=== PATIENT | male | born 1950 | race Caucasian/White ===

== ENCOUNTER 2017-05-05 13:10 | Inpatient (IN) | payer OTHER ==
[2017-05-05] MEDS ORDERED: ASPIRIN 81 MG CHEWABLE TABLETS PO ONE ×2 (13:59→15:36)
--- NOTE | 2017-05-05 14:08 | PDOC ---
History of Present Illness - General Chief Complaint: Shortness of Breath Stated Complaint: CARDIAC COMPLICATIONS (PCP SENT) Time Seen by Provider: 05/05/17 13:36 History Source: Patient, Family Exam Limitations: No Limitations - History of Present Illness Initial Comments: This is a 66 YOM with h/o CHF on 40 mg Lasix bid, A-Fib on digoxin and warfarin , CAD on ASA, CVA, HTN, and HLD who was instructed by his field merchandiser to come into the ED for worsening SOB, bilateral leg swelling (tight and with skin tears and weeping), worsening wet cough, and A-fib with RVR. The patient states that for the past 6 months he has had slowly worsening leg swelling and SOB. He had an onset of cough 1-2 weeks ago which has been productive of clear and yellow sputum and is generally worsening. He also has been sleeping with his back more elevated than normal, needing to transfer constantly between his bed and a recliner chair, and generally has been sleeping poorly d/t his SOB. He otherwise denies any fever, chills, chest pain, palpitations, neck pain, headache, arm pain, back pain, abdominal pain, nausea, vomiting, diarrhea, or constipation. Past History - Past Medical History Allergies/Adverse Reactions: Allergies Allergy/AdvReac Type Severity Reaction Status Date / Time No Known Allergies Allergy Verified 05/05/17 13:35 Home Medications: Ambulatory Orders Aspirin Coated [Ecotrin -] 81 mg PO DAILY #30 tablet.ec 01/12/16 Atorvastatin Ca [Lipitor] 20 mg PO HS #30 tablet 01/12/16 Acetaminophen [Tylenol .Regular Strength -] 650 mg PO Q6H PRN #0 tablet Metoprolol Succinate [Toprol XL -] 100 mg PO BID tab.sr.24h 01/31/16 Digoxin [Lanoxin -] 0.25 mg PO DAILY 05/05/17 Famotidine 20 mg PO DAILY 05/05/17 Furosemide [Lasix -] 40 mg PO DAILY 05/05/17 Levetiracetam [Keppra -] 500 mg PO DAILY 05/05/17 Losartan Potassium 50 mg PO DAILY 05/05/17 Potassium Chloride 20 meq PO DAILY 05/05/17 Warfarin Na [Coumadin] 5 mg PO DAILY 05/05/17 Anemia: No Asthma: No Cancer: No Cardiac Disorders: No CVA: Yes COPD: No CHF: No Dementia: No Diabetes: No GI Disorders: No Disorders: No HTN: Yes Hypercholesterolemia: Yes Liver Disease: No Seizures: Yes Thyroid Disease: No - Surgical History Abdominal Surgery: No Appendectomy: No Cardiac Surgery: No Cholecystectomy: No Lung Surgery: No Neurologic Surgery: No Orthopedic Surgery: No - Immunization History Immunization Up to Date: Yes - Suicide/Smoking/Psychosocial Hx Smoking Status: No Smoking History: Never smoked Have you smoked in the past 12 months: No Number of Cigarettes Smoked Daily: 0 Information on smoking cessation initiated: No Hx Alcohol Use: No Drug/Substance Use Hx: No Substance Use Type: None Hx Substance Use Treatment: No Review of Systems - Review of Systems Able to Perform ROS?: Yes Constitutional: No: Chills, Fever, Unexplained wgt Loss HEENTM: No: Nose Congestion, Throat Pain Respiratory: Yes: Cough, Shortness of Breath, SOB with Exertion, Productive cough Cardiac (ROS): Yes: Edema. No: Chest Pain, Lightheadedness, Palpitations ABD/GI: No: Constipated, Diarrhea, Nausea, Vomiting : No: Burning, Dysuria Musculoskeletal: No: Back Pain, Neck Pain Integumentary: No: Bruising, Rash Neurological: No: Headache, Numbness, Tingling, Weakness, Dizziness Endocrine: No: Unexplained Weight Gain, Unexplained Weight Loss *Physical Exam - Vital Signs Last Vital Signs Temp Pulse Resp BP Pulse Ox 98 F 87 22 148/92 91 L 05/05/17 13:30 05/05/17 13:30 05/05/17 13:30 05/05/17 13:30 05/05/17 13:30 - Physical Exam General Appearance: Yes: Nourished, Appropriately Dressed, Other (initially no distress sitting fully clothed in exam room chair, answers questions appropriately, accompanied by daughter who is supportive and provides affitional medical history, patient becomes dyspneic quickly when transferring to hospital bed from chair and again when ) HEENT: positive: EOMI, RAYNA, Normal ENT Inspection, Normal Voice, Hearing Grossly Normal. negative: Scleral Icterus (R), Scleral Icterus (L), Nasal Congestion Neck: positive: Trachea midline, Supple. negative: Tender, Rigid Respiratory/Chest: positive: Lungs Clear, Normal Breath Sounds. negative: Respiratory Distress, Crackles, Rhonchi, Stridor, Wheezing Cardiovascular: positive: Edema (3+ pitting edema BLE with overlying skin taught , 3x1 cm superficial skin tears x2 to LLE which are weeping serous fluid), JVD, Gallop/S3, Gallop/S4, Irregularly Irregular, Other (mildly tachycardic). negative: Murmur Gastrointestinal/Abdominal: positive: Normal Bowel Sounds, Soft, Protuberent. negative: Tender, Organomegaly, Pulsatile Mass, Guarding Musculoskeletal: positive: Normal Inspection. negative: Decreased Range of Motion, Vertebral Tenderness Extremity: positive: Normal Capillary Refill, Normal Inspection, Normal Range of Motion. negative: Tender, Cyanosis Integumentary: positive: Normal Color, Dry, Warm. negative: Erythema, Rash, Bruising Neurologic: positive: icu registered nurse II-XII NML intact (grossly), Fully Oriented, Alert, Normal Mood/Affect, Normal Response, Motor Strength / ED Treatment Course - LABORATORY CBC & Chemistry Diagram: 05/05/17 14:10 05/05/17 14:10 Medical Decision Making - Medical Decision Making 66 YOM with h/o CHF, HTN, HLD, A-Fib who p/w progressive SOB, BLE edema with weeping, cough, orthopnea. On exam he is hypertensive, initially 91% on RA and desats to 84 on RA with transferring or undressing. Bilateral crackles and faint expiratory wheezes bilaterally. BLE with 3+ pitting edema with taught skin, weeping, and LLE skin tears. DDX IBNLT CHF exacerbation, possibly caused by A-fib or precipitation A-fib, possibly with component of bronchitis/PNA/GIA. Ordered is CBCD CMP Mg Phos Cardiac panel BNP PT INR TS EKG CXR. 05/05/17 16:[address] Escobar who is admitting for Pt's PCP Dr. Lemus. Given the patient's quick desaturation to mid-80s on movement, he recommends ICU placement. 05/05/17 16:[address] Marin in the ED, who will kindly see the patient here in the department. There are currently no ICU beds available. 05/05/17 16:30 Dr. Marin believes telemetry unit placement is best for this patient. Order placed for admission to inpatient telemetry. 05/05/17 17:39 Order placed for repeat troponin. 05/05/17 18:00 Troponin has been drawn and sent to lab. Patient sleeping comfortably in chair in exam room, pulse of 99%, HR 100, BP mid -140s. *DC/Admit/Observation/Transfer Diagnosis at time of Disposition: Elevated troponin, Lower leg edema CHF (congestive heart failure) Qualifiers: Congestive heart failure type: unspecified Congestive heart failure chronicity : unspecified Qualified Code(s): I50.9 - Heart failure, unspecified Afib Qualifiers: Atrial fibrillation type: unspecified Qualified Code(s): I48.91 - Unspecified atrial fibrillation - Discharge Dispostion Condition at time of disposition: Guarded Admit: Yes - Referrals Referrals: Vladimir Lemus MD [Primary Care Provider] - - Patient Instructions - Post Discharge Activity
[2017-05-05] MEDS ORDERED: ASPIRIN 81 MG CHEWABLE TABLETS ONE ×2 (14:28→15:42)
[2017-05-05] MEDS ORDERED: ALBUTEROL SO4 2.5/IPRATROPIUM 0.5 INH SOL 3 ML VIAL.NEB. NEB ONE (14:28)
[2017-05-05 14:33] LABS: BASO % 0.6 % (0-2.0); EOS % 0.8 % (0-4.5); HEMATOCRIT 43.7 % (35.4-49); HEMOGLOBIN 13.8 GM/dL (11.7-16.9); MCHC 31.5 g/dl (32.0-35.9); MEAN CELL VOLUME 85.7 fl (80-96); MEAN PLT VOLUME 9.7 fl (7.5-11.1); MONO % 6.4 % (3.8-10.2); NEUT % 69.2 % (42.8-82.8); PLATELET COUNT 218 K/MM3 (134-434); RBC 5.09 M/mm3 (4.00-5.60); RDW 17.6 % (11.9-15.9); WHITE BLOOD COUNT 8.3 K/mm3 (4.0-10.0)
[2017-05-05] MEDS ORDERED: NITROGLYCERIN 2% OINTMENT - 1GM PACKET TD ONE ×2 (14:42→14:55)
[2017-05-05 14:46] LABS: INR 2.8 (0.82-1.09); PROTHROMBIN TIME (PATIENT) 31.6 SEC (9.98-11.88)
[2017-05-05 15:10] LABS: ARTERIAL BLD GAS O2 SATURATION 98.6 % (90-98.9); ARTERIAL BLOOD GAS BASE EXCESS 2.4 meq/l (-2-2); ARTERIAL BLOOD GAS pH 7.41 (7.35-7.45)
[2017-05-05 15:16] LABS: ALBUMIN 3.7 g/dl (3.4-5.0); ANION GAP 10 (8-16); BLOOD UREA NITROGEN 31 mg/dL (7-18); CALCIUM 8.8 mg/dL (8.5-10.1); CHLORIDE 102 mmol/L (98-107); CO2 30 mmol/L (21-32); CREATININE 1.5 mg/dL (0.7-1.3); GLUCOSE,RANDOM 121 mg/dL (74-106); POTASSIUM 3.6 mmol/L (3.5-5.1); SGOT/AST 45 U/L (15-37); SGPT/ALT 52 U/L (12-78); SODIUM 142 mmol/L (136-145)
--- NOTE | 2017-05-05 15:21 | PDOC ---
Attending Attestation - HPI HPI: 05/05/17 15:23 The patient is a 66 year old male with a significant PMH of CHF, hypertension, hyperlipidemia, and CVA who presents to the emergency department with worsening shortness of breath that began approximately 6 months ago, bilateral leg swelling, worsening wet cough, and fast heart rate. The patient states the shortness of breath is worsened when lying flat and that he has been sleeping in a recliner. The patient denies any chest pain or palpitations. The patient reports he saw his voice professor yesterday who sent the patient to the ER for further evaluation. The patient states he is on Lasix 40mg, and his PCP increased the dose to 60am 40 prn, but has not taken the increased dose yet. The patient denies chest pain, headache and dizziness. Denies fever, chills, nausea, vomit, diarrhea and constipation. Denies dysuria, frequency, urgency and hematuria. Allergies: NKA Past surgical history:S ocial history: No reported alcohol, cigarette or drug use. PCP: Dr. Mariah Gilbert Scientific Research Associate: Viry Hardin - Physicial Exam PE: 05/05/17 15:24 GENERAL: Awake, alert, and fully oriented, in no acute distress HEAD: No signs of trauma EYES: PERRLA, EOMI, sclera anicteric, conjunctiva clear ENT: Auricles normal inspection, hearing grossly normal, nares patent, oropharynx clear without exudates. Moist mucosa NECK: Normal ROM, supple, no lymphadenopathy, JVD, or masses LUNGS: +diminished BS at the bases, minimal wheezing on the L, fair air movement HEART: Irregularly irregular, rate 108, normal S1 and S2, no murmurs or rubs. ABDOMEN: Soft, nontender, normoactive bowel sounds. No guarding, no rebound. No masses EXTREMITIES: 3+ bilateral pitting edema, symmetric to thighs. Normal range of motion. No clubbing or cyanosis. No cords, erythema, or tenderness BACK: No midline spinal tenderness in cervical/thoracic/lumbar region NEUROLOGICAL: Normal speech, cranial nerves intact, negative pronator drift, 5/ 5 strength in all 4 extremities, normal sensation to light touch in all 4 extremities, normal cerebellar exam, normal gait, normal reflexes and tone SKIN: (+) 2 skin tears on the anterior fluid with mild fluid. Warm, normal turgor. No rashes or lesions. <Joana Crow - Last Filed: 05/05/17 15:23> - Resident Resident Name: Astrid Caba - ED Attending Attestation I have performed the following: I have examined & evaluated the patient, The case was reviewed & discussed with the resident, I agree w/resident's findings & plan, Exceptions are as noted - Medical Decision Making 05/05/17 15:19 66-year-old male with multiple medical problems including CHF, and A. fib presents with 6 months of progressive dyspnea on exertion, increased lower extremity edema, orthopnea, and fast heart rate. Vitals remarkable for hypoxia to 91% on room air, and with any movement or exertion hypoxia to the mid 80s. Blood pressure on my evaluation elevated to 168/110. Exam with diminished breath sounds at the bases, irregularly irregular rhythm, and bilateral lower extremity edema. Presentation consistent with decompensated CHF exacerbation. We 'll obtain blood work, chest x-ray, and give IV Lasix and Nitro paste in the meantime. Patient will require admission. 05/05/17 16:42 Likely CHF exacerbation. Given lasix and nitro paste. Patient has been admitted to Dr. Zavala for further management. Case discussed in detail with admitting physician including history, physical exam and ancillary studies. Admitting physician has assumed care for the patient, will follow all pending diagnostics and will complete the evaluation and treatment. <Alyssa Soliman - Last Filed: 05/05/17 19:00>
[2017-05-05 15:32] LABS: ALK PHOS 122 U/L (45-117); BILIRUBIN,TOTAL 1.6 mg/dL (0.2-1.0); N-TERMINAL BNP 9237.53 pg/ml (5-125); TOT PROT 7.2 g/dl (6.4-8.2)
[2017-05-05] MEDS ORDERED: FUROSEMIDE 40 MG/4 ML INJECTABLE VIAL IVPUSH ONE (15:36)
[2017-05-05] MEDS ORDERED: FUROSEMIDE 40 MG/4 ML INJECTABLE VIAL ONE (15:42)
[2017-05-05] MEDS ORDERED: ACETAMINOPHEN 325 MG TABLET (FP) PO PRN (15:53)
--- NOTE | 2017-05-05 17:56 | CON.PULM ---
Consult Consult Specialty:: PULM/CCM Referred by:: MONA Reason for Consultation:: SOB - History of Present Illness Chief Complaint: SOB History of Present Illness: 66 M, CHF, A-Fib on warfarin, CAD, CVA, HTN, HPL, previous history of sleep apnea (results not available and not on treatment) and recent imaging at [facility] (results are none). Patient reports that he is scheduled on May 21 for an ablation procedure. Admitted via the ER due to worsening SOB and bilateral leg swelling and some cough. He also reports orthopnea. No travel history or sick contacts. He reports 1 to 2 weeks of clear / yellow sputum. No fever or chills. No hemoptysis. CXR: bilateral increased vascular congestion. 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 (in 01/24) Cardio/Vascular: Yes: AFIB, CHF, HTN, Hyperlipdemia - Alcohol/Substance Use Hx Alcohol Use: No History of Substance Use: reports: None - Smoking History Smoking history: Never smoked Have you smoked in the past 12 months: No Aproximately how many cigarettes per day: 0 - Social History Usual Living Arrangement: With Spouse Occupation: [employer] work History of Recent Travel: Yes ([place]) Home Medications - Allergies Allergies/Adverse Reactions: Allergies Allergy/AdvReac Type Severity Reaction Status Date / Time No Known Allergies Allergy Verified 05/05/17 13:35 - Home Medications Home Medications: Ambulatory Orders Aspirin Coated [Ecotrin -] 81 mg PO DAILY #30 tablet.ec 01/12/16 Atorvastatin Ca [Lipitor] 20 mg PO HS #30 tablet 01/12/16 Acetaminophen [Tylenol .Regular Strength -] 650 mg PO Q6H PRN #0 tablet Metoprolol Succinate [Toprol XL -] 100 mg PO BID tab.sr.24h 01/31/16 Digoxin [Lanoxin -] 0.25 mg PO DAILY 05/05/17 Famotidine 20 mg PO DAILY 05/05/17 Furosemide [Lasix -] 40 mg PO DAILY 05/05/17 Levetiracetam [Keppra -] 500 mg PO DAILY 05/05/17 Losartan Potassium 50 mg PO DAILY 05/05/17 Potassium Chloride 20 meq PO DAILY 05/05/17 Warfarin Na [Coumadin] 5 mg PO DAILY 05/05/17 Family Disease History - Family Disease History Family Disease History: Diabetes: Mother (in her 60s) Review of Systems - Review of Systems Constitutional: denies: Chills, Fever, Lethargy, Malaise, Night Sweats, Unintentional Wgt. Loss, Weakness Eyes: reports: No Symptoms HENT: reports: No Symptoms Neck: reports: No Symptoms Cardiovascular: reports: Edema, Shortness of Breath. denies: Chest Pain, Palpitations Respiratory: reports: Cough, Orthopnea, Snoring, SOB, SOB on Exertion. denies: Hemoptysis, Wheezing Gastrointestinal: reports: No Symptoms Genitourinary: reports: No Symptoms Musculoskeletal: reports: No Symptoms Integumentary: reports: Blister, Bruising, Change in Color, Erythema Neurological: reports: No Symptoms Endocrine: reports: No Symptoms Hematology/Lymphatic: reports: No Symptoms Psychiatric: reports: No Symptoms Physical Exam Vital Sings: Vital Signs Temperature 98 F 05/05/17 13:30 Pulse Rate 104 H 05/05/17 17:39 Respiratory Rate 28 H 05/05/17 17:39 Blood Pressure 146/102 05/05/17 17:39 O2 Sat by Pulse Oximetry (%) 99 05/05/17 17:39 Constitutional: Yes: No Distress, Calm Eyes: Yes: Conjunctiva Clear, EOM Intact HENT: Yes: Atraumatic, Normocephalic Neck: Yes: Supple, Trachea Midline Cardiovascular: Yes: Pulse Irregular Respiratory: Yes: Cough, Diminished, On Nasal O2, Rales. No: Accessory Muscle Use, Rhonchi, Stridor, Tachypnea, Wheezes ...Inspection: Yes: WNL Gastrointestinal: Yes: Normal Bowel Sounds, Soft Renal/: Yes: WNL Breast(s): Yes: WNL Musculoskeletal: Yes: WNL Extremities: Yes: Erythema Edema: Yes Peripheral Pulses WNL: Yes Integumentary: Yes: WNL Neurological: Yes: WNL, Alert, Oriented ...Motor Strength: WNL Psychiatric: Yes: WNL, Alert, Oriented Labs: CBC, BMP 05/05/17 14:10 05/05/17 14:10 ABG Results ABG pH 7.41 (7.35-7.45) 05/05/17 15:08 ABG pCO2 at Pt Temp 43.0 mmHg (35-45) 05/05/17 15:08 ABG pO2 at Pt Temp 124.0 mmHg (80-100) H D 05/05/17 15:08 ABG HCO3 26.9 meq/L (22-26) H 05/05/17 15:08 ABG O2 Sat (Measured) 98.6 % (90-98.9) 05/05/17 15:08 ABG Base Excess 2.4 meq/l (-2-2) H 05/05/17 15:08 Imaging - Results Chest X-ray: Report Reviewed, Image Reviewed Problem List - Problems (1) Afib Code(s): I48.91 - UNSPECIFIED ATRIAL FIBRILLATION Qualifiers: Atrial fibrillation type: unspecified Qualified Code(s): I48.91 - Unspecified atrial fibrillation (2) CHF (congestive heart failure) Code(s): I50.9 - HEART FAILURE, UNSPECIFIED Qualifiers: Congestive heart failure type: unspecified Congestive heart failure chronicity: unspecified Qualified Code(s): I50.9 - Heart failure, unspecified (3) Elevated troponin Code(s): R74.8 - ABNORMAL LEVELS OF OTHER SERUM ENZYMES (4) Lower leg edema Code(s): R60.0 - LOCALIZED EDEMA (5) Diabetes 1.5, managed as type 2 Code(s): E13.9 - OTHER SPECIFIED DIABETES MELLITUS WITHOUT COMPLICATIONS (6) Hypertension Code(s): I10 - ESSENTIAL (PRIMARY) HYPERTENSION Qualifiers: Hypertension type: essential hypertension Qualified Code(s): I10 - Essential (primary) hypertension (7) Sleep apnea Code(s): G47.30 - SLEEP APNEA, UNSPECIFIED (8) Sleeps in sitting position due to orthopnea Code(s): R06.01 - ORTHOPNEA Assessment/Plan Lasix IVP BID O2 as needed Would monitor off ABX Daily weight Cardiology evaluation Digoxin Toprol XL Can be medically managed on the Cardiac Telemetry Unit for now Please call for any change in condition Will follow the patient Dr Marin
[2017-05-05] MEDS ORDERED: WARFARIN NA 5 MG TABLET (UD) ONE (18:40)
[2017-05-05] MEDS: WARFARIN NA 5 MG TABLET (UD) PO SCH (18:50)
[2017-05-05 18:58] LABS: URINE APPEARANCE CLEAR; URINE BILIRUBIN NEGATIVE (NEGATIVE); URINE BLOOD NEGATIVE (NEGATIVE); URINE COLOR STRAW; URINE GLUCOSE (UA) NEGATIVE (NEGATIVE); URINE KETONE NEGATIVE (NEGATIVE); URINE LEUK ESTERASE NEGATIVE (NEGATIVE); URINE NITRITE NEGATIVE (NEGATIVE); URINE PROTEIN NEGATIVE (NEGATIVE); URINE UROBILINOGEN NEGATIVE mg/dL (0.2-1.0)
[2017-05-05] MEDS: ATORVASTATIN CA 10 MG TABLET (FP) PO SCH (21:55)
[2017-05-05] MEDS: METOPROLOL SUCCINATE 100 MG TAB.SR.24H (FP) PO SCH (21:55)
[2017-05-05] MEDS: RANITIDINE HCL 150 MG TABLET (FP) PO SCH (21:55)
[2017-05-05] MEDS: levETIRAcetam 500 MG TABLET (FP) PO SCH (21:55)
[2017-05-05] MEDS ORDERED: CHLORHEXIDINE GLUCONATE 4% CLEANSER FOR DECOLONIZATION TP SCH (22:00)
[2017-05-05] MEDS ORDERED: MUPIROCIN 2% TOPICAL OINTMENT FOR DECOLONIZATION NS SCH (22:00)
[2017-05-06] MEDS: FUROSEMIDE 40 MG/4 ML INJECTABLE VIAL IVPUSH SCH ×2 (05:54→17:37)
[2017-05-06 06:04] VITALS: BMI 29.6
--- NOTE | 2017-05-06 07:03 | HP ---
Admitting History and Physical - Admission History of Present Illness: 66 YOM with h/o CHF on 40 mg Lasix bid, A-Fib on digoxin and warfarin, CAD on ASA, CVA, HTN, and HLD who was instructed by his career development consultant to come into the ED for worsening SOB, bilateral leg swelling (tight and with skin tears and weeping), worsening wet cough, and A-fib with RVR. The patient states that for the past 6 months he has had slowly worsening leg swelling and SOB. He had an onset of cough 1-2 weeks ago which has been productive of clear and yellow sputum and is generally worsening. He also has been sleeping with his back more elevated than normal, needing to transfer constantly between his bed and a recliner chair, and generally has been sleeping poorly d/t his SOB. He otherwise denies any fever, chills, chest pain, palpitations, neck pain, headache, arm pain, back pain, abdominal pain, nausea, vomiting, diarrhea, or constipation. 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 (in 01/24) Cardiovascular: Yes: AFIB, CHF, HTN, Hyperlipdemia - Smoking History Smoking history: Never smoked Have you smoked in the past 12 months: No Aproximately how many cigarettes per day: 0 - Alcohol/Substance Use Hx Alcohol Use: No History of Substance Use: reports: None - Social History Occupation: [employer] work History of Recent Travel: Yes ([facility]) Home Medications - Allergies Allergies/Adverse Reactions: Allergies Allergy/AdvReac Type Severity Reaction Status Date / Time No Known Allergies Allergy Verified 05/05/17 13:35 - Home Medications Home Medications: Ambulatory Orders Aspirin Coated [Ecotrin -] 81 mg PO DAILY #30 tablet.ec 01/12/16 Atorvastatin Ca [Lipitor] 20 mg PO HS #30 tablet 01/12/16 Acetaminophen [Tylenol .Regular Strength -] 650 mg PO Q6H PRN #0 tablet Metoprolol Succinate [Toprol XL -] 100 mg PO BID tab.sr.24h 01/31/16 Digoxin [Lanoxin -] 0.25 mg PO DAILY 05/05/17 Famotidine 20 mg PO DAILY 05/05/17 Furosemide [Lasix -] 40 mg PO DAILY 05/05/17 Levetiracetam [Keppra -] 500 mg PO DAILY 05/05/17 Losartan Potassium 50 mg PO DAILY 05/05/17 Potassium Chloride 20 meq PO DAILY 05/05/17 Warfarin Na [Coumadin -] 5 mg PO DAILY 05/05/17 Aspirin Coated [Ecotrin -] 81 mg PO DAILY tablet.ec 05/08/17 Metolazone [Zaroxolyn -] 2.5 mg PO DAILY #7 tablet 05/08/17 Family Disease History - Family Disease History Family Disease History: Diabetes: Mother (in her 60s) Review of Systems - Review of Systems Cardiovascular: denies: Chest Pain Respiratory: reports: SOB, SOB on Exertion Gastrointestinal: denies: Abdominal Pain Integumentary: reports: Pruritis, Wound (LEFT LEG) Physical Examination Vital Signs: Vital Signs Temperature 98 F 05/06/17 02:30 Pulse Rate 105 H 05/06/17 02:30 Respiratory Rate 20 05/06/17 02:30 Blood Pressure 145/88 05/06/17 02:30 O2 Sat by Pulse Oximetry (%) 99 05/05/17 21:00 Cardiovascular: Yes: S1, S2 Respiratory: Yes: Rales Gastrointestinal: Yes: Normal Bowel Sounds, Soft Edema: Yes Edema: LLE: 3+, RLE: 3+ Integumentary: Yes: Skin Tear, Venous Stasis Changes Labs: CBC, BMP 05/05/17 14:10 05/05/17 14:10 Imaging - Results Chest X-ray: Report Reviewed Problem List - Problems (1) CHF (congestive heart failure) Assessment/Plan: IV LASIX ECHO CARDIO Laboratory Tests 05/05/17 14:10 Troponin I 0.51 H D B-Natriuretic Peptide 9237.53 H MONITOR LABS Code(s): I50.9 - HEART FAILURE, UNSPECIFIED Qualifiers: Congestive heart failure type: unspecified Congestive heart failure chronicity: unspecified Qualified Code(s): I50.9 - Heart failure, unspecified (2) Afib Assessment/Plan: ON COUMADIN THERAPEUTIC Code(s): I48.91 - UNSPECIFIED ATRIAL FIBRILLATION Qualifiers: Atrial fibrillation type: unspecified Qualified Code(s): I48.91 - Unspecified atrial fibrillation (3) Elevated troponin Assessment/Plan: MONITOR EKG ECHO Code(s): R74.8 - ABNORMAL LEVELS OF OTHER SERUM ENZYMES (4) Lower leg edema Assessment/Plan: DIURETICS DUPLEX Code(s): R60.0 - LOCALIZED EDEMA (5) Diabetes 1.5, managed as type 2 Assessment/Plan: BGM ENDO Code(s): E13.9 - OTHER SPECIFIED DIABETES MELLITUS WITHOUT COMPLICATIONS (6) Mediastinal lymphadenopathy Assessment/Plan: CT PULM Code(s): R59.0 - LOCALIZED ENLARGED LYMPH NODES
--- NOTE | 2017-05-06 08:03 | EKG ---
Test Reason : Blood Pressure : / mmHG Vent. Rate : 116 BPM Atrial Rate : 115 BPM P-R Int : 000 ms QRS Dur : 130 ms QT Int : 346 ms P-R-T Axes : 000 123 -29 degrees QTc Int : 480 ms ATRIAL FIBRILLATION WITH RAPID VENTRICULAR RESPONSE RIGHT BUNDLE BRANCH BLOCK LEFT POSTERIOR FASCICULAR BLOCK BIFASCICULAR BLOCK ABNORMAL ECG WHEN COMPARED WITH ECG OF 30-JAN-2016 00:43, ST NOW DEPRESSED IN ANTERIOR LEADS T WAVE INVERSION NO LONGER EVIDENT IN LATERAL LEADS Confirmed by ZACH PERALTA, HELLEN ([id number]) on 05/06/2017 8:03:24 AM Referred By: Confirmed By:HELLEN SERRANO MD
[2017-05-06 08:30] LABS: BASO % 0.6 % (0-2.0); EOS % 2.3 % (0-4.5); HEMOGLOBIN 13.5 GM/dL (11.7-16.9); LYMPH % 21.8 % (8-40); MCH 26.9 pg (25.7-33.7); MCHC 31.4 g/dl (32.0-35.9); MEAN CELL VOLUME 85.7 fl (80-96); MEAN PLT VOLUME 9.5 fl (7.5-11.1); MONO % 7.5 % (3.8-10.2); NEUT % 67.8 % (42.8-82.8); PLATELET COUNT 207 K/MM3 (134-434); RBC 5.02 M/mm3 (4.00-5.60); RDW 17.2 % (11.9-15.9)
[2017-05-06] MEDS: METOPROLOL SUCCINATE 100 MG TAB.SR.24H (FP) PO SCH ×2 (09:24→22:14)
[2017-05-06] MEDS: RANITIDINE HCL 150 MG TABLET (FP) PO SCH ×2 (09:25→22:15)
[2017-05-06] MEDS: DIGOXIN 0.25 MG TABLET (FP) PO SCH (09:25)
[2017-05-06] MEDS: levETIRAcetam 500 MG TABLET (FP) PO SCH ×2 (09:25→22:15)
[2017-05-06] MEDS: ASPIRIN COATED 81 MG TABLET.EC PO SCH (09:25)
[2017-05-06] MEDS: LOSARTAN POTASSIUM 50 MG TABLET (FP) PO SCH (09:25)
[2017-05-06] MEDS: POTASSIUM CHLORIDE TABS 20 MEQ TABLET.ER (FP) PO SCH (09:25)
--- NOTE | 2017-05-06 10:05 | CONSULT ---
Consult Consult Specialty:: nephrology Referred by:: Dr. Pagan Reason for Consultation:: IKER - History of Present Illness Chief Complaint: shortness of breath History of Present Illness: 66M with multiple medical problems including HTN, HLD, CAD, CHF, and A fib presents to the ED with a chief complaint of shortness of breath. Per patient he has been having worsening shortness of breath for the past 6 months. Over the past 6 months he has been having worsening symptoms of CHF such as leg swelling orthopnea and weeping of fluid from lower extremities. He also has been complaining of worsening orthopnea. Patient was instructed by his program planner to come into the hospital for evaluation of his worsening SOB, lower extremity edema, and worsening cough. The patient was also noted to be in RVR. Cough has been productive with yellow colored sputum for the past 2 weeks. He endorses occasional insomnia which has worsened mainly due to shortness of breath and unable to get comfortable sleeping. He otherwise denies any fever, chills, chest pain, palpitations, neck pain, headache, arm pain, back pain, abdominal pain, nausea, vomiting, diarrhea, or constipation. Patient was noted to have a creatinine of 1.5 on admission. Previously creatinine was around 1.0- 1.2. Has one creatinine reading of 1.4 in 2016. 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) Cardio/Vascular: Yes: AFIB, CHF, HTN, Hyperlipdemia Renal/: Yes: Renal Failure - Alcohol/Substance Use Hx Alcohol Use: No History of Substance Use: reports: None - Smoking History Smoking history: Never smoked Have you smoked in the past 12 months: No Aproximately how many cigarettes per day: 0 - Social History Usual Living Arrangement: With Spouse Occupation: [employer] work History of Recent Travel: Yes ([place]) Home Medications - Allergies Allergies/Adverse Reactions: Allergies Allergy/AdvReac Type Severity Reaction Status Date / Time No Known Allergies Allergy Verified 05/05/17 13:35 - Home Medications Home Medications: Ambulatory Orders Aspirin Coated [Ecotrin -] 81 mg PO DAILY #30 tablet.ec 01/12/16 Atorvastatin Ca [Lipitor] 20 mg PO HS #30 tablet 01/12/16 Acetaminophen [Tylenol .Regular Strength -] 650 mg PO Q6H PRN #0 tablet Metoprolol Succinate [Toprol XL -] 100 mg PO BID tab.sr.24h 01/31/16 Digoxin [Lanoxin -] 0.25 mg PO DAILY 05/05/17 Famotidine 20 mg PO DAILY 05/05/17 Furosemide [Lasix -] 40 mg PO DAILY 05/05/17 Levetiracetam [Keppra -] 500 mg PO DAILY 05/05/17 Losartan Potassium 50 mg PO DAILY 05/05/17 Potassium Chloride 20 meq PO DAILY 05/05/17 Warfarin Na [Coumadin] 5 mg PO DAILY 05/05/17 Family Disease History - Family Disease History Family Disease History: Diabetes: Mother (in her 60s) Review of Systems - Review of Systems Constitutional: reports: No Symptoms Eyes: reports: No Symptoms, Floaters Neck: reports: No Symptoms Cardiovascular: reports: Shortness of Breath, Other (orthopnea) Respiratory: reports: Cough (productive), Exercise Intolerance, SOB, SOB on Exertion Genitourinary: reports: No Symptoms Musculoskeletal: reports: No Symptoms Integumentary: reports: No Symptoms Neurological: reports: No Symptoms Physical Exam Vital Signs: Vital Signs Temperature 98.6 F 05/06/17 06:00 Pulse Rate 103 H 05/06/17 09:25 Respiratory Rate 18 05/06/17 06:00 Blood Pressure 150/80 05/06/17 06:00 O2 Sat by Pulse Oximetry (%) 99 05/05/17 21:00 Constitutional: Yes: No Distress Eyes: Yes: Conjunctiva Clear HENT: Yes: Atraumatic Neck: Yes: Supple Cardiovascular: Yes: Pulse Irregular Respiratory: Yes: Other (crackles at bases bilaterally) Gastrointestinal: Yes: Soft Edema: Yes Edema: LLE: 3+, RLE: 3+ Neurological: Yes: Alert, Oriented ...Motor Strength: WNL Psychiatric: Yes: Alert Labs: CBC, BMP 05/06/17 07:45 Imaging - Results Chest X-ray: Report Reviewed, Image Reviewed Assessment/Plan 66 M with multiple medical problems presents to the hospital with shortness of breath found to be in a fib with RVR and CHF exacerbation with IKER. Problem List: HTN HLD CAD A fib h/o CVA Seizure CHF exacerbation IKER possible history of CKD hyperbilirubinemia transaminitis Plan: IKER likely secondary to CHF exacerbation and flash pulmonary edema from afib send urine electrolytes get renal bladder ultrasound Echo cardiology consult Lasix for diuresis avoid nephrotoxic drugs renally dose all meds CrCl 47 anticoagulation continue kenneth Case discussed with attending Dr. Sloan
[2017-05-06 13:02] LABS: ALBUMIN 3.6 g/dl (3.4-5.0); ANION GAP 13 (8-16); BLOOD UREA NITROGEN 28 mg/dL (7-18); CALCIUM 8.2 mg/dL (8.5-10.1); CHLORIDE 103 mmol/L (98-107); CO2 27 mmol/L (21-32); CREATININE 1.4 mg/dL (0.7-1.3); GLUCOSE,RANDOM 92 mg/dL (74-106); POTASSIUM 3.7 mmol/L (3.5-5.1); SGOT/AST 41 U/L (15-37); SGPT/ALT 49 U/L (12-78); SODIUM 143 mmol/L (136-145)
[2017-05-06 13:16] LABS: ALK PHOS 119 U/L (45-117); BILIRUBIN,TOTAL 1.6 mg/dL (0.2-1.0); TOT PROT 6.8 g/dl (6.4-8.2)
--- NOTE | 2017-05-06 14:33 | PN ---
Progress Note (short form) - Note Progress Note: PULMONARY CHART REVIEWED. PATIENT STATES HIS LUNGS ARE FINE. 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 PLEASE CALL RADU LALA MD
--- NOTE | 2017-05-06 14:34 | CON.CARD ---
Consult Consult Specialty:: cardiology Referred by:: Luz Reason for Consultation:: Shortness of breath - History of Present Illness Chief Complaint: Shortness of breath History of Present Illness: The patient is a 66-year-old obese man, with a history of hypertension, coronary artery disease, systolic heart failure, atrial fibrillation, stroke, now presenting with progressive dyspnea on effort and leg edema, worsening renal function. The patient leads a sedentary lifestyle, and does not walk any important distances. Denies chest pains. Admits to chronic dyspnea on effort. Is currently quite comfortable. He feels better. 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, Seizure (in 01/24) Cardio/Vascular: Yes: AFIB, CHF, HTN, Hyperlipdemia Renal/: Yes: Renal Failure - Alcohol/Substance Use Hx Alcohol Use: No History of Substance Use: reports: None - Smoking History Smoking history: Never smoked Have you smoked in the past 12 months: No Aproximately how many cigarettes per day: 0 - Social History Usual Living Arrangement: With Spouse Occupation: [employer] work History of Recent Travel: Yes ([facility]) Home Medications - Allergies Allergies/Adverse Reactions: Allergies Allergy/AdvReac Type Severity Reaction Status Date / Time No Known Allergies Allergy Verified 05/05/17 13:35 - Home Medications Home Medications: Ambulatory Orders Aspirin Coated [Ecotrin -] 81 mg PO DAILY #30 tablet.ec 01/12/16 Atorvastatin Ca [Lipitor] 20 mg PO HS #30 tablet 01/12/16 Acetaminophen [Tylenol .Regular Strength -] 650 mg PO Q6H PRN #0 tablet Metoprolol Succinate [Toprol XL -] 100 mg PO BID tab.sr.24h 01/31/16 Digoxin [Lanoxin -] 0.25 mg PO DAILY 05/05/17 Famotidine 20 mg PO DAILY 05/05/17 Furosemide [Lasix -] 40 mg PO DAILY 05/05/17 Levetiracetam [Keppra -] 500 mg PO DAILY 05/05/17 Losartan Potassium 50 mg PO DAILY 05/05/17 Potassium Chloride 20 meq PO DAILY 05/05/17 Warfarin Na [Coumadin] 5 mg PO DAILY 05/05/17 Family Disease History - Family Disease History Family Disease History: Diabetes: Mother (in her 60s) Review of Systems - Review of Systems Constitutional: reports: No Symptoms Eyes: reports: No Symptoms HENT: reports: No Symptoms Neck: reports: No Symptoms Cardiovascular: reports: Edema, Shortness of Breath Respiratory: reports: Orthopnea, SOB, SOB on Exertion Gastrointestinal: reports: No Symptoms Genitourinary: reports: No Symptoms Breasts: reports: No Symptoms Reported Musculoskeletal: reports: No Symptoms Integumentary: reports: No Symptoms Neurological: reports: No Symptoms Endocrine: reports: No Symptoms Hematology/Lymphatic: reports: No Symptoms Psychiatric: reports: No Symptoms Vital Signs: Vital Signs Temperature 98.6 F 05/06/17 06:00 Pulse Rate 103 H 05/06/17 09:25 Respiratory Rate 18 05/06/17 06:00 Blood Pressure 150/80 05/06/17 06:00 O2 Sat by Pulse Oximetry (%) 99 05/05/17 21:00 Constitutional: Yes: No Distress, Calm, Obese Eyes: Yes: WNL, Conjunctiva Clear HENT: Yes: WNL, Atraumatic, Normocephalic Neck: Yes: WNL, Supple, Trachea Midline Respiratory: Yes: WNL, Regular, Rales Gastrointestinal: Yes: WNL, Normal Bowel Sounds, Soft Cardiovascular: Yes: Pulse Irregular JVD: No Carotid Bruit: No PMI: Non-Displaced Heart Sounds: Yes: S1, S2 Murmur: Yes: Systolic Murmur, Grade 2 Musculoskeletal: Yes: WNL Edema: Yes Edema: LLE: 2+, RLE: 2+ Peripheral Pulses WNL: No Peripheral Pulses: 1+ Left Carotid, 1+ Right Carotid, 1+ Left Femoral, 1+ Right Femoral, 1+ Left Popliteal, 1+ Right Popliteal, 1+ Left Doralis Pedis, 1+ Right Dorsalis Pedis Integumentary: Yes: WNL Neurological: Yes: WNL Psychiatric: Yes: WNL - Other Data Labs, Other Data: CBC, BMP 05/06/17 07:45 05/06/17 07:45 INR, PTT INR 2.80 (0.82-1.09) H D 05/05/17 14:10 Troponin, BNP 05/05/17 05/05/17 05/06/17 14:10 17:55 07:45 Troponin I 0.51 H D 0.51 H 0.52 H B-Natriuretic Peptide 9237.53 H Troponin, BNP 05/05/17 05/05/17 05/06/17 14:10 17:55 07:45 Troponin I 0.51 H D 0.51 H 0.52 H B-Natriuretic Peptide 9237.53 H Assessment/Plan 66-year-old man with a history of hypertension, hyperlipidemia, coronary artery disease, systolic heart failure, chronic atrial fibrillation on Coumadin, stroke , now admitted with progressive dyspnea on effort, worsening lower extremity edema with mild pulmonary congestion. Creatinine elevated above baseline. There is no DVTs on leg Dopplers. The echocardiogram showed moderate left ventricular systolic dysfunction, signs of right ventricular volume overload, moderate to severe tricuspid regurgitation , moderate mitral valve regurgitation. The patient needs strict salt and fluid restrictions. No fluids, nor ice cubes at the bedside. Continue Lasix 40 mg IV twice daily. Continue the other medications as currently. Consider AV/every study (to avoid contrast) to rule out chronic pulmonary emboli , given right ventricular strain on the echo. Ventricular rates are well controlled in atrial fibrillation. There is no need for further cardiac testing at this point. I will consider a pharmacological nuclear stress test, when the patient is euvolemic. The patient is stable. We will follow.
--- NOTE | 2017-05-06 16:53 | PN ---
Teaching Attending Note Name of Resident: Zeke Lemus (Nephrology) ATTENDING PHYSICIAN STATEMENT I saw and evaluated the patient. I reviewed the resident's note and discussed the case with the resident. I agree with the resident's findings and plan as documented. Nephrology Consult Pt presents to the ER with increased shortness of breath. He was found to have elevated creatinine and I was called to evaluate him. He denies nsaid use. He is on diuretics at home. He feels that his edema and breathing are improving. pmhx htn ckd cad epilepsy chf nkda ros sob family hx denies Current Medications Generic Name Dose Route Start Last Admin Trade Name Freq PRN Reason Stop Dose Admin Acetaminophen 650 mg 05/05/17 15:53 Tylenol - PO Q6H PRN PAIN OR FEVER Aspirin 81 mg 05/06/17 10:00 05/06/17 09:25 Ecotrin - PO 81 mg DAILY NITZA Administration Atorvastatin Calcium 10 mg 05/05/17 22:00 05/05/17 21:55 Lipitor - PO 10 mg HS NITZA Administration Digoxin 0.25 mg 05/06/17 10:00 05/06/17 09:25 Lanoxin - PO 0.25 mg DAILY NITZA Administration Furosemide 40 mg 05/06/17 06:00 05/06/17 05:54 Lasix Injection - IVPUSH 40 mg BID@0600,1400 NITZA Administration Levetiracetam 500 mg 05/05/17 22:00 05/06/17 09:25 Keppra - PO 500 mg BID NITZA Administration Losartan Potassium 50 mg 05/06/17 10:00 05/06/17 09:25 Cozaar - PO 50 mg DAILY NITZA Administration Metoprolol Succinate 100 mg 05/05/17 22:00 05/06/17 09:24 Toprol Xl - PO 100 mg BID NITZA Administration Potassium Chloride 20 meq 05/06/17 10:00 05/06/17 09:25 K-Dur - PO 20 meq DAILY NITZA Administration Ranitidine HCl 150 mg 05/05/17 22:00 05/06/17 09:25 Zantac - PO 150 mg BID NITZA Administration Warfarin Sodium 5 mg 05/05/17 18:00 05/05/17 18:50 Coumadin - PO 5 mg DAILY@1800 NITZA Administration Last Vital Signs Temp Pulse Resp BP Pulse Ox 98 F 99 H 18 150/71 97 05/06/17 14:15 05/06/17 14:15 05/06/17 14:15 05/06/17 14:15 05/06/17 10:00 Laboratory Tests 01/10/16 01/30/16 01/31/16 05:35 00:35 05:45 Creatinine 1.0 1.3 D 1.4 H Urine Protein Urine Blood 05/05/17 05/05/17 05/06/17 14:10 18:20 07:45 Creatinine 1.5 H 1.4 H Urine Protein Negative Urine Blood Negative cardio s1s2 pulm clear GI soft ext edema neuro awake and alert Impression 1. azotemia 2. CKD 3. dyspnea 4. CHF 5. HTN 6. A-FIB 7. CHOL 8. CVA 9. hyperbilirubinemia 10. transaminitis Plan - cont with lasix - repeat labs in am - check renal ultrasound - keep on arb for now, had proteinuria in the past - will need outpt workup - will follow Dr Sloan
[2017-05-06 20:49] LABS: INR 3.05 (0.82-1.09); PROTHROMBIN TIME (PATIENT) 34.5 SEC (9.98-11.88)
[2017-05-06] MEDS: WARFARIN NA 5 MG TABLET (UD) PO SCH (21:05)
[2017-05-06] MEDS: ATORVASTATIN CA 10 MG TABLET (FP) PO SCH (22:15)
[2017-05-07] MEDS: FUROSEMIDE 40 MG/4 ML INJECTABLE VIAL IVPUSH SCH ×2 (06:06→14:07)
--- NOTE | 2017-05-07 07:51 | PN ---
Progress Note, Physician - Current Medication List Current Medications: Active Medications Acetaminophen (Tylenol -) 650 mg PO Q6H PRN PRN Reason: PAIN OR FEVER Aspirin (Ecotrin -) 81 mg PO DAILY [facility] Last Admin: 05/06/17 09:25 Dose: 81 mg Atorvastatin Calcium (Lipitor -) 10 mg PO HS [facility] Last Admin: 05/06/17 22:15 Dose: 10 mg Digoxin (Lanoxin -) 0.25 mg PO DAILY [facility] Last Admin: 05/06/17 09:25 Dose: 0.25 mg Furosemide (Lasix Injection -) 40 mg IVPUSH BID@0600,1400 [facility] Last Admin: 05/07/17 06:06 Dose: 40 mg Levetiracetam (Keppra -) 500 mg PO BID [facility] Last Admin: 05/06/17 22:15 Dose: 500 mg Losartan Potassium (Cozaar -) 50 mg PO DAILY [facility] Last Admin: 05/06/17 09:25 Dose: 50 mg Metoprolol Succinate (Toprol Xl -) 100 mg PO BID [facility] Last Admin: 05/06/17 22:14 Dose: 100 mg Potassium Chloride (K-Dur -) 20 meq PO DAILY [facility] Last Admin: 05/06/17 09:25 Dose: 20 meq Ranitidine HCl (Zantac -) 150 mg PO BID [facility] Last Admin: 05/06/17 22:15 Dose: 150 mg Warfarin Sodium (Coumadin -) 5 mg PO DAILY@1800 [facility] Last Admin: 05/06/17 21:05 Dose: Not Given - Objective Vital Signs: Vital Signs Temperature 97.5 F L 05/07/17 05:58 Pulse Rate 97 H 05/07/17 05:58 Respiratory Rate 22 05/07/17 05:58 Blood Pressure 155/92 05/07/17 05:58 O2 Sat by Pulse Oximetry (%) 98 05/06/17 21:00 Cardiovascular: Yes: Regular Rate and Rhythm Respiratory: Yes: Regular, CTA Bilaterally Gastrointestinal: Yes: Normal Bowel Sounds, Soft Labs: CBC, BMP 05/06/17 07:45 05/06/17 07:45 INR, PTT INR 3.05 (0.82-1.09) H 05/06/17 20:00 Problem List - Problems (1) CHF (congestive heart failure) Assessment/Plan: IV LASIX ECHO NOTEL--LV DYSFUNCTION CARDIO APPRECIATED Laboratory Tests 05/05/17 14:10 Troponin I 0.51 H D B-Natriuretic Peptide 9237.53 H MONITOR LABS Code(s): I50.9 - HEART FAILURE, UNSPECIFIED Qualifiers: Congestive heart failure type: unspecified Congestive heart failure chronicity: unspecified Qualified Code(s): I50.9 - Heart failure, unspecified (2) Afib Assessment/Plan: ON COUMADIN THERAPEUTIC Code(s): I48.91 - UNSPECIFIED ATRIAL FIBRILLATION Qualifiers: Atrial fibrillation type: unspecified Qualified Code(s): I48.91 - Unspecified atrial fibrillation (3) Elevated troponin Assessment/Plan: MONITOR EKG ECHO NOTED Code(s): R74.8 - ABNORMAL LEVELS OF OTHER SERUM ENZYMES (4) Lower leg edema Assessment/Plan: DIURETICS DUPLEX Code(s): R60.0 - LOCALIZED EDEMA (5) Diabetes 1.5, managed as type 2 Assessment/Plan: BGM ENDO Code(s): E13.9 - OTHER SPECIFIED DIABETES MELLITUS WITHOUT COMPLICATIONS (6) Mediastinal lymphadenopathy Assessment/Plan: CT NO CHANGE PULM Code(s): R59.0 - LOCALIZED ENLARGED LYMPH NODES (7) Valvular heart disease Assessment/Plan: PER CARDIO Code(s): I38 - ENDOCARDITIS, VALVE UNSPECIFIED
[2017-05-07 08:56] LABS: INR 2.68 (0.82-1.09); PROTHROMBIN TIME (PATIENT) 30.3 SEC (9.98-11.88)
[2017-05-07] MEDS: ASPIRIN COATED 81 MG TABLET.EC PO SCH (09:16)
[2017-05-07] MEDS: RANITIDINE HCL 150 MG TABLET (FP) PO SCH ×2 (09:16→21:12)
[2017-05-07] MEDS: LOSARTAN POTASSIUM 50 MG TABLET (FP) PO SCH (09:16)
[2017-05-07] MEDS: levETIRAcetam 500 MG TABLET (FP) PO SCH ×2 (09:16→21:13)
[2017-05-07] MEDS: DIGOXIN 0.25 MG TABLET (FP) PO SCH (09:17)
[2017-05-07] MEDS: POTASSIUM CHLORIDE TABS 20 MEQ TABLET.ER (FP) PO SCH (09:17)
[2017-05-07] MEDS: METOPROLOL SUCCINATE 100 MG TAB.SR.24H (FP) PO SCH ×2 (09:17→21:13)
--- NOTE | 2017-05-07 14:10 | PN ---
Progress Note, Physician History of Present Illness: Pt seen and examined at bedside. He is awake and alert. He feels that his breathing is improved. He denies chest pain or palpitations. - Current Medication List Current Medications: Active Medications Acetaminophen (Tylenol -) 650 mg PO Q6H PRN PRN Reason: PAIN OR FEVER Aspirin (Ecotrin -) 81 mg PO DAILY [facility] Last Admin: 05/07/17 09:16 Dose: 81 mg Atorvastatin Calcium (Lipitor -) 10 mg PO HS [facility] Last Admin: 05/06/17 22:15 Dose: 10 mg Digoxin (Lanoxin -) 0.25 mg PO DAILY [facility] Last Admin: 05/07/17 09:17 Dose: 0.25 mg Furosemide (Lasix Injection -) 40 mg IVPUSH BID@0600,1400 [facility] Last Admin: 05/07/17 14:07 Dose: 40 mg Levetiracetam (Keppra -) 500 mg PO BID [facility] Last Admin: 05/07/17 09:16 Dose: 500 mg Losartan Potassium (Cozaar -) 50 mg PO DAILY [facility] Last Admin: 05/07/17 09:16 Dose: 50 mg Metoprolol Succinate (Toprol Xl -) 100 mg PO BID [facility] Last Admin: 05/07/17 09:17 Dose: 100 mg Potassium Chloride (K-Dur -) 20 meq PO DAILY [facility] Last Admin: 05/07/17 09:17 Dose: 20 meq Ranitidine HCl (Zantac -) 150 mg PO BID [facility] Last Admin: 05/07/17 09:16 Dose: 150 mg Warfarin Sodium (Coumadin -) 5 mg PO DAILY@1800 [facility] Last Admin: 05/06/17 21:05 Dose: Not Given - Objective Vital Signs: Vital Signs Temperature 97.8 F 05/07/17 10:00 Pulse Rate 96 H 05/07/17 10:00 Respiratory Rate 20 05/07/17 10:00 Blood Pressure 162/104 05/07/17 10:00 O2 Sat by Pulse Oximetry (%) 98 05/07/17 10:00 Constitutional: Yes: Calm Eyes: Yes: Conjunctiva Clear HENT: Yes: Atraumatic Neck: Yes: Supple Cardiovascular: Yes: S1, S2 Respiratory: Yes: Rhonchi Gastrointestinal: Yes: Soft Genitourinary: Yes: WNL Musculoskeletal: Yes: WNL Edema: Yes Edema: LLE: 1+, RLE: 1+ Integumentary: Yes: Venous Stasis Changes Neurological: Yes: Oriented Psychiatric: Yes: Oriented Labs: CBC, BMP 05/06/17 07:45 05/06/17 07:45 INR, PTT INR 2.68 (0.82-1.09) H 05/07/17 08:20 Problem List - Problems (1) Afib Code(s): I48.91 - UNSPECIFIED ATRIAL FIBRILLATION Qualifiers: Atrial fibrillation type: unspecified Qualified Code(s): I48.91 - Unspecified atrial fibrillation (2) CHF (congestive heart failure) Code(s): I50.9 - HEART FAILURE, UNSPECIFIED Qualifiers: Congestive heart failure type: unspecified Congestive heart failure chronicity: unspecified Qualified Code(s): I50.9 - Heart failure, unspecified (3) Elevated troponin Code(s): R74.8 - ABNORMAL LEVELS OF OTHER SERUM ENZYMES (4) Lower leg edema Code(s): R60.0 - LOCALIZED EDEMA (5) Azotemia Code(s): R79.89 - OTHER SPECIFIED ABNORMAL FINDINGS OF BLOOD CHEMISTRY (6) Diabetes 1.5, managed as type 2 Code(s): E13.9 - OTHER SPECIFIED DIABETES MELLITUS WITHOUT COMPLICATIONS (7) Hypertension Code(s): I10 - ESSENTIAL (PRIMARY) HYPERTENSION Qualifiers: Hypertension type: essential hypertension Qualified Code(s): I10 - Essential (primary) hypertension Assessment/Plan Current Medications Generic Name Dose Route Start Last Admin Trade Name Freq PRN Reason Stop Dose Admin Acetaminophen 650 mg 05/05/17 15:53 Tylenol - PO Q6H PRN PAIN OR FEVER Aspirin 81 mg 05/06/17 10:00 05/07/17 09:16 Ecotrin - PO 81 mg DAILY NITZA Administration Atorvastatin Calcium 10 mg 05/05/17 22:00 05/06/17 22:15 Lipitor - PO 10 mg HS NITZA Administration Digoxin 0.25 mg 05/06/17 10:00 05/07/17 09:17 Lanoxin - PO 0.25 mg DAILY NITZA Administration Furosemide 40 mg 05/06/17 06:00 05/07/17 14:07 Lasix Injection - IVPUSH 40 mg BID@0600,1400 NITZA Administration Levetiracetam 500 mg 05/05/17 22:00 05/07/17 09:16 Keppra - PO 500 mg BID NITZA Administration Losartan Potassium 50 mg 05/06/17 10:00 05/07/17 09:16 Cozaar - PO 50 mg DAILY NITZA Administration Metoprolol Succinate 100 mg 05/05/17 22:00 05/07/17 09:17 Toprol Xl - PO 100 mg BID NITZA Administration Potassium Chloride 20 meq 05/06/17 10:00 05/07/17 09:17 K-Dur - PO 20 meq DAILY NITZA Administration Ranitidine HCl 150 mg 05/05/17 22:00 05/07/17 09:16 Zantac - PO 150 mg BID NITZA Administration Warfarin Sodium 5 mg 05/05/17 18:00 05/06/17 21:05 Coumadin - PO Not Given DAILY@1800 [facility] Impression 1. azotemia 2. CKD 3. dyspnea 4. CHF 5. HTN 6. A-FIB 7. CHOL 8. CVA 9. hyperbilirubinemia 10. transaminitis 11. pleural effusion 12. prostat enlargement on ultrasound Plan - cont with diuretics - renal ultrasound reviewed - check psa as outpt - discussed diet at length with pt and his at bedside. He is having food brought from home - daily weights - cont with losartan - will need outpt workup - will follow Dr Sloan
--- NOTE | 2017-05-07 14:17 | PN ---
Progress Note, Physician History of Present Illness: 66-year-old man admitted with worsening lower extremity edema, acute renal failure and shortness of breath. The patient is currently comfortable, having lunch. - Current Medication List Current Medications: Active Medications Acetaminophen (Tylenol -) 650 mg PO Q6H PRN PRN Reason: PAIN OR FEVER Aspirin (Ecotrin -) 81 mg PO DAILY [facility] Last Admin: 05/07/17 09:16 Dose: 81 mg Atorvastatin Calcium (Lipitor -) 10 mg PO HS [facility] Last Admin: 05/06/17 22:15 Dose: 10 mg Digoxin (Lanoxin -) 0.25 mg PO DAILY [facility] Last Admin: 05/07/17 09:17 Dose: 0.25 mg Furosemide (Lasix Injection -) 40 mg IVPUSH BID@0600,1400 [facility] Last Admin: 05/07/17 14:07 Dose: 40 mg Levetiracetam (Keppra -) 500 mg PO BID [facility] Last Admin: 05/07/17 09:16 Dose: 500 mg Losartan Potassium (Cozaar -) 50 mg PO DAILY [facility] Last Admin: 05/07/17 09:16 Dose: 50 mg Metoprolol Succinate (Toprol Xl -) 100 mg PO BID [facility] Last Admin: 05/07/17 09:17 Dose: 100 mg Potassium Chloride (K-Dur -) 20 meq PO DAILY [facility] Last Admin: 05/07/17 09:17 Dose: 20 meq Ranitidine HCl (Zantac -) 150 mg PO BID [facility] Last Admin: 05/07/17 09:16 Dose: 150 mg Warfarin Sodium (Coumadin -) 5 mg PO DAILY@1800 [facility] Last Admin: 05/06/17 21:05 Dose: Not Given - Objective Vital Signs: Vital Signs Temperature 97.8 F 05/07/17 10:00 Pulse Rate 96 H 05/07/17 10:00 Respiratory Rate 20 05/07/17 10:00 Blood Pressure 162/104 05/07/17 10:00 O2 Sat by Pulse Oximetry (%) 98 05/07/17 10:00 Constitutional: Yes: No Distress, Calm, Obese Eyes: Yes: WNL, Conjunctiva Clear HENT: Yes: WNL, Atraumatic, Normocephalic Neck: Yes: WNL, Supple, Trachea Midline Cardiovascular: Yes: Pulse Irregular, S1, S2 Respiratory: Yes: Rales Gastrointestinal: Yes: WNL, Normal Bowel Sounds, Soft ...Rectal Exam: Yes: Deferred Genitourinary: Yes: WNL Musculoskeletal: Yes: WNL Edema: No Edema: LLE: 1+, RLE: 1+ Peripheral Pulses WNL: No Peripheral Pulses: Left Radial: 1+, Right Radial: 1+, Left Doralis Pedis: 1+, Right Dorsalis Pedis: 1+, Left Femoral: 1+, Right Femoral: 1+ Integumentary: Yes: WNL Neurological: Yes: WNL, Alert, Oriented ...Motor Strength: WNL Psychiatric: Yes: WNL Labs: CBC, BMP 05/06/17 07:45 05/06/17 07:45 INR, PTT INR 2.68 (0.82-1.09) H 05/07/17 08:20 Assessment/Plan The patient is clinically and symptomatically better. The breathing improved. The edema persists. The patient needs to be fluid restricted. Please remove all fluids, and ice cubes from the bedside. Please continue intravenous Lasix as currently. Increase losartan to 100 mg daily. Continue the other medications as currently. Watch potassium and renal function daily. The patient is stable.
[2017-05-07] MEDS: WARFARIN NA 5 MG TABLET (UD) PO SCH (17:22)
[2017-05-07] MEDS: ATORVASTATIN CA 10 MG TABLET (FP) PO SCH (21:12)
[2017-05-08] MEDS: FUROSEMIDE 40 MG/4 ML INJECTABLE VIAL IVPUSH SCH ×3 (06:02→15:47)
[2017-05-08 07:27] LABS: INR 2.11 (0.82-1.09); PROTHROMBIN TIME (PATIENT) 23.8 SEC (9.98-11.88)
--- NOTE | 2017-05-08 08:59 | DS ---
Physical Examination Vital Signs: Vital Signs Temperature 97.7 F 05/08/17 06:00 Pulse Rate 96 H 05/08/17 06:00 Respiratory Rate 20 05/08/17 06:00 Blood Pressure 138/101 05/08/17 06:00 O2 Sat by Pulse Oximetry (%) 98 05/07/17 20:19 Findings/Remarks: feels better wants to go home check cxr if stable will dc with close out patient follow up Cardiovascular: Yes: S1, S2 Respiratory: Yes: Regular, CTA Bilaterally, Diminished (at the bases) Gastrointestinal: Yes: Normal Bowel Sounds, Soft Labs: CBC, BMP 05/06/17 07:45 05/06/17 07:45 Discharge Summary Reason For Visit: LOWER LEG EDEMA; CHF; A FIB; HYPERTENSION Current Active Problems Afib (Acute) CHF (congestive heart failure) (Acute) Elevated troponin (Acute) Lower leg edema (Acute) Valvular heart disease (Acute) Hospital Course: 66 YOM with h/o CHF on 40 mg Lasix bid, A-Fib on digoxin and warfarin, CAD on ASA, CVA, HTN, and HLD who was 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 The patient states that for the past 6 months he has had slowly worsening leg swelling and SOB. He had an onset of cough 1-2 weeks ago which has been productive of clear and yellow sputum and is generally worsening. He also has been sleeping with his back more elevated than normal, needing to transfer constantly between his bed and a recliner chair, and generally has been sleeping poorly d/t his SOB. He otherwise denies any fever, chills, chest pain, palpitations, neck pain, headache, arm pain, back pain, abdominal pain, nausea, vomiting, diarrhea, or constipation. 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, Seizure (in 01/24) Cardiovascular: Yes: AFIB, CHF, HTN, Hyperlipdemia - Smoking History Smoking history: Never smoked Have you smoked in the past 12 months: No Aproximately how many cigarettes per day: 0 - Alcohol/Substance Use Hx Alcohol Use: No History of Substance Use: reports: None - Problems (1) CHF (congestive heart failure) Assessment/Plan: IV LASIX--to po plus add zoroxylin ECHO NOTEL--LV DYSFUNCTION CARDIO APPRECIATED MONITOR LABS Code(s): I50.9 - HEART FAILURE, UNSPECIFIED Qualifiers: Congestive heart failure type: unspecified Congestive heart failure chronicity: unspecified Qualified Code(s): I50.9 - Heart failure, unspecified (2) Afib Assessment/Plan: ON COUMADIN THERAPEUTIC Code(s): I48.91 - UNSPECIFIED ATRIAL FIBRILLATION Qualifiers: Atrial fibrillation type: unspecified Qualified Code(s): I48.91 - Unspecified atrial fibrillation (3) Elevated troponin Assessment/Plan: MONITOR EKG ECHO NOTED Code(s): R74.8 - ABNORMAL LEVELS OF OTHER SERUM ENZYMES (4) Lower leg edema Assessment/Plan: DIURETICS DUPLEX Code(s): R60.0 - LOCALIZED EDEMA (5) Diabetes 1.5, managed as type 2 Assessment/Plan: BGM ENDO Code(s): E13.9 - OTHER SPECIFIED DIABETES MELLITUS WITHOUT COMPLICATIONS (6) Mediastinal lymphadenopathy Assessment/Plan: CT NO CHANGE PULM Code(s): R59.0 - LOCALIZED ENLARGED LYMPH NODES (7) Valvular heart disease Assessment/Plan: PER CARDIO Code(s): I38 - ENDOCARDITIS, VALVE UNSPECIFIED Condition: Improved - Instructions Referrals: Vladimir Lemus MD [Primary Care Provider] - 05/11/17 - Home Medications Comprehensive Discharge Medication List: Ambulatory Orders Aspirin Coated [Ecotrin -] 81 mg PO DAILY #30 tablet.ec 01/12/16 Atorvastatin Ca [Lipitor] 20 mg PO HS #30 tablet 01/12/16 Acetaminophen [Tylenol .Regular Strength -] 650 mg PO Q6H PRN #0 tablet Metoprolol Succinate [Toprol XL -] 100 mg PO BID tab.sr.24h 01/31/16 Digoxin [Lanoxin -] 0.25 mg PO DAILY 05/05/17 Famotidine 20 mg PO DAILY 05/05/17 Furosemide [Lasix -] 40 mg PO DAILY 05/05/17 Levetiracetam [Keppra -] 500 mg PO DAILY 05/05/17 Losartan Potassium 50 mg PO DAILY 05/05/17 Potassium Chloride 20 meq PO DAILY 05/05/17 Warfarin Na [Coumadin -] 5 mg PO DAILY 05/05/17 Aspirin Coated [Ecotrin -] 81 mg PO DAILY tablet.ec 05/08/17 Metolazone [Zaroxolyn -] 2.5 mg PO DAILY #7 tablet 05/08/17
[2017-05-08 09:49] LABS: BASO % 0.6 % (0-2.0); EOS % 2.2 % (0-4.5); HEMATOCRIT 46.2 % (35.4-49); HEMOGLOBIN 14.6 GM/dL (11.7-16.9); LYMPH % 25.1 % (8-40); MCH 27.3 pg (25.7-33.7); MCHC 31.6 g/dl (32.0-35.9); MEAN CELL VOLUME 86.3 fl (80-96); MEAN PLT VOLUME 9.8 fl (7.5-11.1); MONO % 8.2 % (3.8-10.2); NEUT % 63.9 % (42.8-82.8); PLATELET COUNT 225 K/MM3 (134-434); RBC 5.36 M/mm3 (4.00-5.60); RDW 17.1 % (11.9-15.9); WHITE BLOOD COUNT 7.1 K/mm3 (4.0-10.0)
[2017-05-08] MEDS: levETIRAcetam 500 MG TABLET (FP) PO SCH ×2 (09:58→21:05)
[2017-05-08] MEDS: ASPIRIN COATED 81 MG TABLET.EC PO SCH (09:58)
[2017-05-08] MEDS: POTASSIUM CHLORIDE TABS 20 MEQ TABLET.ER (FP) PO SCH (09:58)
[2017-05-08] MEDS: DIGOXIN 0.25 MG TABLET (FP) PO SCH (09:58)
[2017-05-08] MEDS: LOSARTAN POTASSIUM 50 MG TABLET (FP) PO SCH (09:58)
[2017-05-08] MEDS: RANITIDINE HCL 150 MG TABLET (FP) PO SCH ×2 (09:58→21:05)
[2017-05-08] MEDS: METOPROLOL SUCCINATE 100 MG TAB.SR.24H (FP) PO SCH (09:59)
[2017-05-08 10:36] LABS: ALBUMIN 3.6 g/dl (3.4-5.0); ALK PHOS 147 U/L (45-117); ANION GAP 7 (8-16); BILIRUBIN,TOTAL 1.5 mg/dL (0.2-1.0); BLOOD UREA NITROGEN 27 mg/dL (7-18); CALCIUM 8.7 mg/dL (8.5-10.1); CHLORIDE 102 mmol/L (98-107); CO2 36 mmol/L (21-32); CREATININE 1.4 mg/dL (0.7-1.3); GLUCOSE,RANDOM 131 mg/dL (74-106); POTASSIUM 3.6 mmol/L (3.5-5.1); SGOT/AST 39 U/L (15-37); SGPT/ALT 55 U/L (12-78); SODIUM 145 mmol/L (136-145); TOT PROT 7.4 g/dl (6.4-8.2)
--- NOTE | 2017-05-08 14:26 | PN ---
Progress Note, Physician Chief Complaint: Shortness of breath and leg edema History of Present Illness: 66-year-old man, presenting with shortness of breath and worsening leg edema. - Current Medication List Current Medications: Active Medications Acetaminophen (Tylenol -) 650 mg PO Q6H PRN PRN Reason: PAIN OR FEVER Aspirin (Ecotrin -) 81 mg PO DAILY [facility] Last Admin: 05/08/17 09:58 Dose: 81 mg Atorvastatin Calcium (Lipitor -) 10 mg PO HS [facility] Last Admin: 05/07/17 21:12 Dose: 10 mg Digoxin (Lanoxin -) 0.25 mg PO DAILY [facility] Last Admin: 05/08/17 09:58 Dose: 0.25 mg Furosemide (Lasix Injection -) 40 mg IVPUSH BID@0600,1400 [facility] Last Admin: 05/08/17 06:02 Dose: 40 mg Levetiracetam (Keppra -) 500 mg PO BID [facility] Last Admin: 05/08/17 09:58 Dose: 500 mg Losartan Potassium (Cozaar -) 50 mg PO DAILY [facility] Last Admin: 05/08/17 09:58 Dose: 50 mg Metoprolol Succinate (Toprol Xl -) 100 mg PO BID [facility] Last Admin: 05/08/17 09:59 Dose: 100 mg Potassium Chloride (K-Dur -) 20 meq PO DAILY [facility] Last Admin: 05/08/17 09:58 Dose: 20 meq Ranitidine HCl (Zantac -) 150 mg PO BID [facility] Last Admin: 05/08/17 09:58 Dose: 150 mg Warfarin Sodium (Coumadin -) 5 mg PO DAILY@1800 [facility] Last Admin: 05/07/17 17:22 Dose: 5 mg - Objective Vital Signs: Vital Signs Temperature 98 F 05/08/17 10:00 Pulse Rate 98 H 05/08/17 10:00 Respiratory Rate 20 05/08/17 10:00 Blood Pressure 148/100 05/08/17 10:00 O2 Sat by Pulse Oximetry (%) 98 05/07/17 20:19 Constitutional: Yes: No Distress, Calm, Obese Eyes: Yes: WNL, Conjunctiva Clear HENT: Yes: WNL, Atraumatic, Normocephalic Neck: Yes: WNL, Supple, Trachea Midline Cardiovascular: Yes: Pulse Irregular, S1, S2 Respiratory: Yes: WNL, Regular, CTA Bilaterally Gastrointestinal: Yes: WNL, Normal Bowel Sounds, Soft ...Rectal Exam: Yes: Deferred Genitourinary: Yes: WNL Musculoskeletal: Yes: WNL Extremities: Yes: Erythema Edema: LLE: 1+, RLE: 1+ Peripheral Pulses WNL: No Peripheral Pulses: Left Radial: 1+, Right Radial: 1+, Left Doralis Pedis: 1+, Right Dorsalis Pedis: 1+, Left Femoral: 1+, Right Femoral: 1+ Integumentary: Yes: WNL Wound/Incision: Yes: Clean/Dry Neurological: Yes: WNL, Alert, Oriented Psychiatric: Yes: WNL Labs: CBC, BMP 05/08/17 09:23 05/08/17 09:23 INR, PTT INR 2.11 (0.82-1.09) H 05/08/17 06:45 Assessment/Plan The patient is clinically and symptomatically better. The edema improved. Lung exam is normal. The patient is breathing comfortably. No chest pains. Ventricular rates are well controlled in atrial fibrillation. The blood pressure needs better control. Please increase losartan from 50-100 mg daily. Consider increasing metoprolol to 150 mg twice daily, if the above measures are not sufficient. May switch to oral Lasix 40 mg twice daily. There is no need for further cardiac workup at this point. Please do not hesitate to call us PRN
[2017-05-08] MEDS ORDERED: PT OWN MED DRAWER 7, Y5N ONE (16:26)
[2017-05-08] MEDS ORDERED: LOSARTAN POTASSIUM 50 MG TABLET (FP) PO ONE (17:13)
--- NOTE | 2017-05-08 17:22 | PN ---
Progress Note, Physician History of Present Illness: Pt seen and examined at bedside. He is awake and alert. He denies shortness of breath. He feels that his lower extremity edema is improved. - Current Medication List Current Medications: Active Medications Acetaminophen (Tylenol -) 650 mg PO Q6H PRN PRN Reason: PAIN OR FEVER Aspirin (Ecotrin -) 81 mg PO DAILY [facility] Last Admin: 05/08/17 09:58 Dose: 81 mg Atorvastatin Calcium (Lipitor -) 10 mg PO HS [facility] Last Admin: 05/07/17 21:12 Dose: 10 mg Digoxin (Lanoxin -) 0.25 mg PO DAILY [facility] Last Admin: 05/08/17 09:58 Dose: 0.25 mg Furosemide (Lasix Injection -) 60 mg IVPUSH BID@0600,1400 [facility] Last Admin: 05/08/17 15:29 Dose: 60 mg Levetiracetam (Keppra -) 500 mg PO BID [facility] Last Admin: 05/08/17 09:58 Dose: 500 mg Losartan Potassium (Cozaar -) 50 mg PO ONCE ONE Stop: 05/08/17 17:14 Losartan Potassium (Cozaar -) 100 mg PO DAILY [facility] Metoprolol Succinate (Toprol Xl -) 150 mg PO BID [facility] Potassium Chloride (K-Dur -) 20 meq PO DAILY [facility] Last Admin: 05/08/17 09:58 Dose: 20 meq Ranitidine HCl (Zantac -) 150 mg PO BID [facility] Last Admin: 05/08/17 09:58 Dose: 150 mg Warfarin Sodium (Coumadin -) 5 mg PO DAILY@1800 [facility] Last Admin: 05/07/17 17:22 Dose: 5 mg - Objective Vital Signs: Vital Signs Temperature 98.0 F 05/08/17 14:00 Pulse Rate 102 H 05/08/17 14:00 Respiratory Rate 20 05/08/17 10:00 Blood Pressure 148/103 05/08/17 14:00 O2 Sat by Pulse Oximetry (%) 98 05/08/17 09:00 Constitutional: Yes: Calm Eyes: Yes: Conjunctiva Clear HENT: Yes: Atraumatic Neck: Yes: Supple Cardiovascular: Yes: S1, S2 Respiratory: Yes: CTA Bilaterally Gastrointestinal: Yes: Soft Genitourinary: Yes: WNL Musculoskeletal: Yes: WNL Edema: Yes Edema: LLE: 1+, RLE: 1+ Neurological: Yes: Oriented Psychiatric: Yes: Oriented Labs: CBC, BMP 05/08/17 09:23 05/08/17 09:23 INR, PTT INR 2.11 (0.82-1.09) H 05/08/17 06:45 Problem List - Problems (1) Afib Code(s): I48.91 - UNSPECIFIED ATRIAL FIBRILLATION Qualifiers: Atrial fibrillation type: unspecified Qualified Code(s): I48.91 - Unspecified atrial fibrillation (2) CHF (congestive heart failure) Code(s): I50.9 - HEART FAILURE, UNSPECIFIED Qualifiers: Congestive heart failure type: unspecified Congestive heart failure chronicity: unspecified Qualified Code(s): I50.9 - Heart failure, unspecified (3) Elevated troponin Code(s): R74.8 - ABNORMAL LEVELS OF OTHER SERUM ENZYMES (4) Lower leg edema Code(s): R60.0 - LOCALIZED EDEMA (5) Azotemia Code(s): R79.89 - OTHER SPECIFIED ABNORMAL FINDINGS OF BLOOD CHEMISTRY (6) Diabetes 1.5, managed as type 2 Code(s): E13.9 - OTHER SPECIFIED DIABETES MELLITUS WITHOUT COMPLICATIONS (7) Hypertension Code(s): I10 - ESSENTIAL (PRIMARY) HYPERTENSION Qualifiers: Hypertension type: essential hypertension Qualified Code(s): I10 - Essential (primary) hypertension Assessment/Plan Current Medications Generic Name Dose Route Start Last Admin Trade Name Freq PRN Reason Stop Dose Admin Acetaminophen 650 mg 05/05/17 15:53 Tylenol - PO Q6H PRN PAIN OR FEVER Aspirin 81 mg 05/06/17 10:00 05/08/17 09:58 Ecotrin - PO 81 mg DAILY [facility] Administration Atorvastatin Calcium 10 mg 05/05/17 22:00 05/07/17 21:12 Lipitor - PO 10 mg HS [facility] Administration Digoxin 0.25 mg 05/06/17 10:00 05/08/17 09:58 Lanoxin - PO 0.25 mg DAILY [facility] Administration Furosemide 60 mg 05/08/17 14:26 05/08/17 15:29 Lasix Injection - IVPUSH 60 mg BID@0600,1400 [facility] Administration Levetiracetam 500 mg 05/05/17 22:00 05/08/17 09:58 Keppra - PO 500 mg BID [facility] Administration Losartan Potassium 100 mg 05/08/17 17:13 Cozaar - PO DAILY [facility] Metoprolol Succinate 150 mg 05/08/17 17:13 Toprol Xl - PO BID [facility] Potassium Chloride 20 meq 05/06/17 10:00 05/08/17 09:58 K-Dur - PO 20 meq DAILY [facility] Administration Ranitidine HCl 150 mg 05/05/17 22:00 05/08/17 09:58 Zantac - PO 150 mg BID [facility] Administration Warfarin Sodium 5 mg 05/05/17 18:00 05/07/17 17:22 Coumadin - PO 5 mg DAILY@1800 [facility] Administration Impression 1. azotemia 2. CKD 3. dyspnea 4. CHF 5. HTN 6. A-FIB 7. CHOL 8. CVA 9. hyperbilirubinemia 10. transaminitis 11. pleural effusion 12. prostat enlargement on ultrasound Plan - switch to oral diuretics - discussed diet with pt - will get renal workup as outpt - check psa as outpt - cont with losartan - will follow PRN Dr Sloan
[2017-05-08] MEDS: WARFARIN NA 5 MG TABLET (UD) PO SCH (18:02)
[2017-05-08] MEDS: ATORVASTATIN CA 10 MG TABLET (FP) PO SCH (21:05)
[2017-05-08] MEDS: METOPROLOL SUCCINATE 50 MG TAB.SR.24H (FP) PO SCH (21:05)
[2017-05-09] MEDS: FUROSEMIDE 40 MG/4 ML INJECTABLE VIAL IVPUSH SCH (05:39)
[2017-05-09 08:25] LABS: CHLORIDE 102 mmol/L (98-107); POTASSIUM 3.6 mmol/L (3.5-5.1); SODIUM 145 mmol/L (136-145)
[2017-05-09 08:30] LABS: ANION GAP 5 (8-16); BLOOD UREA NITROGEN 29 mg/dL (7-18); CALCIUM 8.6 mg/dL (8.5-10.1); CO2 38 mmol/L (21-32); CREATININE 1.4 mg/dL (0.7-1.3); GLUCOSE,RANDOM 88 mg/dL (74-106)
[2017-05-09 08:41] LABS: INR 1.97 (0.82-1.09); PROTHROMBIN TIME (PATIENT) 22.3 SEC (9.98-11.88)
[2017-05-09] MEDS: METOPROLOL SUCCINATE 50 MG TAB.SR.24H (FP) PO SCH (09:00)
[2017-05-09] MEDS: ASPIRIN COATED 81 MG TABLET.EC PO SCH (09:01)
[2017-05-09] MEDS: levETIRAcetam 500 MG TABLET (FP) PO SCH (09:02)
[2017-05-09] MEDS: RANITIDINE HCL 150 MG TABLET (FP) PO SCH (09:02)
[2017-05-09] MEDS: DIGOXIN 0.25 MG TABLET (FP) PO SCH (09:02)
[2017-05-09] MEDS: POTASSIUM CHLORIDE TABS 20 MEQ TABLET.ER (FP) PO SCH (09:02)
[2017-05-09 09:07] VITALS: PULSE 98
--- NOTE | 2017-05-09 09:22 | DS ---
Physical Examination Vital Signs: Vital Signs Temperature 97.9 F 05/09/17 05:28 Pulse Rate 98 H 05/09/17 09:02 Respiratory Rate 18 05/09/17 05:28 Blood Pressure 120/73 05/09/17 05:28 O2 Sat by Pulse Oximetry (%) 97 05/08/17 22:00 Findings/Remarks: FEELS BETTER Cardiovascular: Yes: S1, S2 Respiratory: Yes: Regular, CTA Bilaterally Gastrointestinal: Yes: Normal Bowel Sounds, Soft Edema: LLE: 1+, RLE: 1+ Labs: CBC, BMP 05/08/17 09:23 05/09/17 05:05 Discharge Summary Reason For Visit: LOWER LEG EDEMA; CHF; A FIB; HYPERTENSION Current Active Problems Afib (Acute) CHF (congestive heart failure) (Acute) Elevated troponin (Acute) Lower leg edema (Acute) Valvular heart disease (Acute) Hospital Course: 66 YOM with h/o CHF on 40 mg Lasix bid, A-Fib on digoxin and warfarin, CAD on ASA, CVA, HTN, and HLD 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 The patient states that for the past 6 months he has had slowly worsening leg swelling and SOB. He had an onset of cough 1-2 weeks ago which has been productive of clear and yellow sputum and is generally worsening. He also has been sleeping with his back more elevated than normal, needing to transfer constantly between his bed and a recliner chair, and generally has been sleeping poorly d/t his SOB. He otherwise denies any fever, chills, chest pain, palpitations, neck pain, headache, arm pain, back pain, abdominal pain, nausea, vomiting, diarrhea, or constipation. 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, Seizure (in 01/24) Cardiovascular: Yes: AFIB, CHF, HTN, Hyperlipdemia - Smoking History Smoking history: Never smoked Have you smoked in the past 12 months: No Aproximately how many cigarettes per day: 0 - Alcohol/Substance Use Hx Alcohol Use: No History of Substance Use: reports: None - Problems (1) CHF (congestive heart failure) Assessment/Plan: IV LASIX--to po plus add zoroxylin ECHO NOTEL--LV DYSFUNCTION CARDIO APPRECIATED MONITOR LABS Code(s): I50.9 - HEART FAILURE, UNSPECIFIED Qualifiers: Congestive heart failure type: unspecified Congestive heart failure chronicity: unspecified Qualified Code(s): I50.9 - Heart failure, unspecified (2) Afib Assessment/Plan: ON COUMADIN THERAPEUTIC Code(s): I48.91 - UNSPECIFIED ATRIAL FIBRILLATION Qualifiers: Atrial fibrillation type: unspecified Qualified Code(s): I48.91 - Unspecified atrial fibrillation (3) Elevated troponin Assessment/Plan: MONITOR EKG ECHO NOTED Code(s): R74.8 - ABNORMAL LEVELS OF OTHER SERUM ENZYMES (4) Lower leg edema Assessment/Plan: DIURETICS DUPLEX Code(s): R60.0 - LOCALIZED EDEMA (5) Diabetes 1.5, managed as type 2 Assessment/Plan: BGM ENDO Code(s): E13.9 - OTHER SPECIFIED DIABETES MELLITUS WITHOUT COMPLICATIONS (6) Mediastinal lymphadenopathy Assessment/Plan: CT NO CHANGE PULM Code(s): R59.0 - LOCALIZED ENLARGED LYMPH NODES (7) Valvular heart disease Assessment/Plan: PER CARDIO Code(s): I38 - ENDOCARDITIS, VALVE UNSPECIFIED Condition: Improved - Instructions Referrals: Vladimir Lemus MD [Primary Care Provider] - 05/11/17 Disposition: HOME - Home Medications Comprehensive Discharge Medication List: Ambulatory Orders Aspirin Coated [Ecotrin -] 81 mg PO DAILY #30 tablet.ec 01/12/16 Atorvastatin Ca [Lipitor] 20 mg PO HS #30 tablet 01/12/16 Acetaminophen [Tylenol .Regular Strength -] 650 mg PO Q6H PRN #0 tablet Digoxin [Lanoxin -] 0.25 mg PO DAILY 05/05/17 Famotidine 20 mg PO DAILY 05/05/17 Levetiracetam [Keppra -] 500 mg PO DAILY 05/05/17 Potassium Chloride 20 meq PO DAILY 05/05/17 Warfarin Na [Coumadin -] 5 mg PO DAILY 05/05/17 Aspirin Coated [Ecotrin -] 81 mg PO DAILY tablet.ec 05/08/17 Losartan Potassium [Cozaar -] 100 mg PO DAILY #14 tablet 05/08/17 Metolazone [Zaroxolyn -] 2.5 mg PO DAILY #7 tablet 05/08/17 Metoprolol Tartrate [Lopressor -] 150 mg PO BID #60 tablet 05/08/17 Furosemide [Lasix -] 40 mg PO BID #60 tablet 05/09/17
[2017-05-09] MEDS ORDERED: LOSARTAN POTASSIUM 50 MG TABLET (FP) PO SCH (10:00)
[2017-05-09 10:17] VITALS: BP 132/88; TEMP 98
== END 2017-05-09 10:59 | disposition home or self-care (01) | DRG 291 ==
LOC: JER 13:10 → JERBED 16:14 → J4W 20:15
PROVIDERS: ADMIT Family Medicine; ATTEND Family Medicine
DX: I13.0 Hypertensive heart and chronic kidney disease with heart failure and stage 1 through stage 4 chronic kidney disease, or unspecified chronic kidney disease (principal); I50.21 Acute systolic (congestive) heart failure; N17.9 Acute kidney failure, unspecified; I48.91 Unspecified atrial fibrillation; R59.0 Localized enlarged lymph nodes; E78.5 Hyperlipidemia, unspecified; I25.10 Atherosclerotic heart disease of native coronary artery without angina pectoris; Z86.73 Personal history of transient ischemic attack (TIA), and cerebral infarction without residual deficits; E11.9 Type 2 diabetes mellitus without complications; R74.0 Nonspecific elevation of levels of transaminase and lactic acid dehydrogenase [LDH]; N18.9 Chronic kidney disease, unspecified
CPT/HCPCS: 36415; 36600; 71045-TC; 71046-TC; 71250-TC; 76775-TC; 76856-TC; 80048; 80053; 80162; 81003; 82436; 82550; 82553; 82570; 82803; 83605; 83735; 83880; 84133; 84300; 84484; 85025; 85610; 87086; 93005; 93010; 93306-TC; 93970-TC; 97116-GP; 97161-GP; 99285-25

== ENCOUNTER 2021-04-19 00:24 | Inpatient (IN) | payer OTHER, MEDICARE ==
[2021-04-19 00:43] VITALS: BMI 29.9
[2021-04-19 01:10] LABS: BASO % 0.5 % (0-2.0); EOS % 1.1 % (0-4.5); HEMATOCRIT 39.7 % (35.4-49); HEMOGLOBIN 13.3 GM/dL (11.7-16.9); LYMPH % 17.5 % (8-40); MCH 31.7 pg (25.7-33.7); MCHC 33.5 g/dl (32.0-35.9); MEAN CELL VOLUME 94.6 fl (80-96); MEAN PLT VOLUME 9.9 fl (7.5-11.1); MONO % 8.9 % (3.8-10.2); PLATELET COUNT 169 10^3/uL (134-434); RDW 14.4 % (11.9-15.9); WHITE BLOOD COUNT 6.3 K/mm3 (4.0-10.0)
[2021-04-19 01:12] LABS: VENOUS BASE EXCESS 0.8 mmol/L (-2-2); VENOUS O2 SATURATION 39.6 % (70-80); VENOUS PCO2 56.1 mmHg (38-52); VENOUS PH 7.318 (7.310-7.410)
[2021-04-19 01:28] LABS: CHLORIDE 108 mmol/L (98-107); SODIUM 141 mmol/L (136-145)
[2021-04-19 01:30] LABS: CALCIUM 8.9 mg/dL (8.5-10.1)
[2021-04-19 01:31] LABS: ALBUMIN 4.1 g/dl (3.4-5.0); ANION GAP 5 MMOL/L (8-16); BLOOD UREA NITROGEN 73.2 mg/dL (7-18); CO2 27 mmol/L (21-32); MAGNESIUM 2.5 mg/dL (1.8-2.4)
[2021-04-19 01:33] LABS: CREATININE 2.5 mg/dL (0.55-1.3); SGOT/AST 25 U/L (15-37); SGPT/ALT 37 U/L (13-61)
[2021-04-19 01:34] LABS: PHOSPHOROUS 3.8 mg/dL (2.5-4.9)
[2021-04-19 01:35] LABS: BILIRUBIN,TOTAL 0.8 mg/dL (0.2-1); TOT PROT 7.8 g/dl (6.4-8.2)
[2021-04-19 01:36] LABS: ALK PHOS 105 U/L (45-117)
[2021-04-19 01:47] LABS: INR 1.82 (0.83-1.09); PROTHROMBIN TIME (PATIENT) 21.1 SEC (9.7-13.0)
[2021-04-19 01:59] LABS: GLUCOSE,RANDOM 40 mg/dL (74-106)
[2021-04-19] MEDS ORDERED: DEXTROSE 50%-WATER - 25 GM/50 ML VIAL IVPUSH ONE (02:00)
[2021-04-19] MEDS ORDERED: GLUCAGON 1 MG KIT IVPUSH ONE (02:01)
[2021-04-19] MEDS ORDERED: ASPIRIN 81 MG CHEWABLE TABLETS PO ONE (02:04)
[2021-04-19] MEDS ORDERED: DEXTROSE 50%-WATER 25 GM/50 ML DISP.SYRIN ONE (02:06)
[2021-04-19] MEDS ORDERED: GLUCAGON 1 MG KIT ONE (02:12)
[2021-04-19] MEDS ORDERED: ASPIRIN 81 MG CHEWABLE TABLETS ONE (02:21)
[2021-04-19] MEDS ORDERED: WARFARIN NA 5 MG TABLET PO ONE ×2 (05:51→18:00)
[2021-04-19] MEDS ORDERED: levETIRAcetam 500 MG TABLET (FP) PO ONE (09:06)
[2021-04-19] MEDS: levETIRAcetam 500 MG TABLET (FP) PO SCH (09:13)
[2021-04-19] MEDS ORDERED: DEXTROSE 50%-WATER - 25 GM/50 ML VIAL IVPUSH PRN (10:28)
[2021-04-19] MEDS ORDERED: DEXTROSE 5%-NORMAL SALINE 1,000 ML IV SCH (10:30)
[2021-04-19 10:50] LABS: EPI CELLS 3 /uL (0-25.1); HYALINE CASTS 1 /uL (0-3.1); URINE APPEARANCE CLEAR; URINE BACTERIA 5 /uL (0-1359); URINE BILIRUBIN NEGATIVE (NEGATIVE); URINE COLOR YELLOW; URINE GLUCOSE (UA) NEGATIVE (NEGATIVE); URINE KETONE NEGATIVE (NEGATIVE); URINE LEUK ESTERASE NEGATIVE (NEGATIVE); URINE NITRITE NEGATIVE (NEGATIVE); URINE PROTEIN 1+ (NEGATIVE); URINE RBC 7 /uL (0-23.9); URINE UROBILINOGEN 0.2 mg/dL (0.2-1.0); URINE WBC 3 /uL (0-25.8)
[2021-04-19] MEDS ORDERED: PANTOPRAZOLE 20 MG TABLET PO ONE (12:31)
[2021-04-19] MEDS: PANTOPRAZOLE 20 MG TABLET PO SCH (12:34)
[2021-04-19] MEDS ORDERED: WARFARIN NA 5 MG TABLET ONE (18:05)
[2021-04-19] MEDS ORDERED: FUROSEMIDE 40 MG/4 ML INJECTABLE VIAL ONE (18:05)
[2021-04-19] MEDS: FUROSEMIDE 40 MG/4 ML INJECTABLE VIAL IVPUSH SCH (18:15)
[2021-04-19] MEDS ORDERED: ATORVASTATIN CA 80 MG TABLET (FP) ONE (22:57)
[2021-04-19] MEDS: ATORVASTATIN CA 80 MG TABLET (FP) PO SCH (23:04)
[2021-04-19 23:35] LABS: HEMATOCRIT 38.6 % (35.4-49); MCH 31.6 pg (25.7-33.7); MCHC 33.5 g/dl (32.0-35.9); MEAN CELL VOLUME 94.3 fl (80-96); MEAN PLT VOLUME 10.1 fl (7.5-11.1); PLATELET COUNT 150 10^3/uL (134-434); RDW 13.9 % (11.9-15.9); WHITE BLOOD COUNT 7.9 K/mm3 (4.0-10.0)
[2021-04-20 00:04] LABS: N-TERMINAL BNP 3262.4 pg/ml (5-125)
[2021-04-20] MEDS ORDERED: FUROSEMIDE 40 MG/4 ML INJECTABLE VIAL IVPUSH ONE (00:56)
[2021-04-20 00:58] LABS: CALCIUM 8.8 mg/dL (8.5-10.1)
[2021-04-20 00:59] LABS: BLOOD UREA NITROGEN 53.9 mg/dL (7-18)
[2021-04-20 01:02] LABS: CREATININE 1.7 mg/dL (0.55-1.3)
[2021-04-20 01:57] LABS: MAGNESIUM 1.8 mg/dL (1.8-2.4)
[2021-04-20 05:45] LABS: HEMOGLOBIN 13.4 GM/dL (11.7-16.9); MCH 30.9 pg (25.7-33.7); MCHC 32.6 g/dl (32.0-35.9); MEAN CELL VOLUME 94.6 fl (80-96); MEAN PLT VOLUME 10.1 fl (7.5-11.1); PLATELET COUNT 159 10^3/uL (134-434); RBC 4.33 M/mm3 (4.00-5.60); RDW 13.6 % (11.9-15.9); WHITE BLOOD COUNT 7.7 K/mm3 (4.0-10.0)
[2021-04-20 05:58] LABS: INR 2.18 (0.83-1.09); PROTHROMBIN TIME (PATIENT) 25.3 SEC (9.7-13.0)
[2021-04-20] MEDS ORDERED: MAGNESIUM SULF 50% (8.12 MEQ/2 ML-1 GM VIAL) IVPB ONE (06:04)
[2021-04-20] MEDS: FUROSEMIDE 40 MG/4 ML INJECTABLE VIAL IVPUSH SCH ×2 (06:06→13:43)
[2021-04-20] MEDS ORDERED: MAGNESIUM SULFATE IN WATER 2 GM/50 ML IVPB IVPB ONE (06:07)
[2021-04-20 06:15] LABS: CALCIUM 9.2 mg/dL (8.5-10.1)
[2021-04-20 06:16] LABS: ALBUMIN 4.1 g/dl (3.4-5.0); BLOOD UREA NITROGEN 46.2 mg/dL (7-18)
[2021-04-20 06:19] LABS: CREATININE 1.7 mg/dL (0.55-1.3)
[2021-04-20 06:21] LABS: BILIRUBIN,TOTAL 3.2 mg/dL (0.2-1); TOT PROT 7.7 g/dl (6.4-8.2)
[2021-04-20 07:12] LABS: MAGNESIUM 1.9 mg/dL (1.8-2.4)
[2021-04-20] MEDS ORDERED: METOPROLOL TARTRATE 25 MG TABLET (FP) PO SCH (10:00)
[2021-04-20] MEDS ORDERED: PANTOPRAZOLE 20 MG TABLET PO ONE (10:25)
[2021-04-20] MEDS ORDERED: levETIRAcetam 500 MG TABLET (FP) PO ONE (10:25)
[2021-04-20] MEDS ORDERED: METOPROLOL TARTRATE 25 MG TABLET (FP) ONE (10:25)
[2021-04-20] MEDS: levETIRAcetam 500 MG TABLET (FP) PO SCH (10:29)
[2021-04-20] MEDS: PANTOPRAZOLE 20 MG TABLET PO SCH (10:29)
[2021-04-20] MEDS ORDERED: FUROSEMIDE 40 MG/4 ML INJECTABLE VIAL ONE (13:29)
[2021-04-20] MEDS ORDERED: METOPROLOL TARTRATE 50 MG TABLET (FP) PO ONE (13:50)
[2021-04-20] MEDS ORDERED: METOPROLOL TARTRATE 50 MG TABLET (FP) ONE ×2 (14:07→23:31)
[2021-04-20] MEDS ORDERED: WARFARIN NA 5 MG TABLET ONE (18:36)
[2021-04-20] MEDS: WARFARIN NA 5 MG TABLET PO SCH (18:38)
[2021-04-20] MEDS ORDERED: ATORVASTATIN CA 80 MG TABLET (FP) ONE (23:31)
[2021-04-20] MEDS: ATORVASTATIN CA 80 MG TABLET (FP) PO SCH (23:46)
[2021-04-20] MEDS: METOPROLOL TARTRATE 50 MG TABLET (FP) PO SCH (23:47)
[2021-04-21] MEDS: FUROSEMIDE 40 MG/4 ML INJECTABLE VIAL IVPUSH SCH ×2 (06:17→13:03)
[2021-04-21 07:23] LABS: HEMOGLOBIN 13.9 GM/dL (11.7-16.9); MEAN CELL VOLUME 94.1 fl (80-96); PLATELET COUNT 158 10^3/uL (134-434); RBC 4.36 M/mm3 (4.00-5.60); RDW 13.6 % (11.9-15.9); WHITE BLOOD COUNT 6.2 K/mm3 (4.0-10.0)
[2021-04-21 08:03] LABS: ALBUMIN 3.8 g/dl (3.4-5.0); BLOOD UREA NITROGEN 38.8 mg/dL (7-18); MAGNESIUM 2.5 mg/dL (1.8-2.4)
[2021-04-21 08:04] LABS: CALCIUM 8.9 mg/dL (8.5-10.1)
[2021-04-21 08:07] LABS: CREATININE 1.5 mg/dL (0.55-1.3)
[2021-04-21 08:08] LABS: BILIRUBIN,TOTAL 3.4 mg/dL (0.2-1); TOT PROT 7.3 g/dl (6.4-8.2)
[2021-04-21 08:39] LABS: INR 2.18 (0.83-1.09); PROTHROMBIN TIME (PATIENT) 25.3 SEC (9.7-13.0)
[2021-04-21] MEDS: levETIRAcetam 500 MG TABLET (FP) PO SCH (09:23)
[2021-04-21] MEDS: PANTOPRAZOLE 20 MG TABLET PO SCH (09:23)
[2021-04-21] MEDS: METOPROLOL TARTRATE 50 MG TABLET (FP) PO SCH ×2 (09:23→21:22)
[2021-04-21] MEDS: WARFARIN NA 5 MG TABLET PO SCH (17:00)
[2021-04-21] MEDS: ATORVASTATIN CA 80 MG TABLET (FP) PO SCH (21:22)
[2021-04-22] MEDS: FUROSEMIDE 40 MG TABLET (FP) PO SCH ×2 (05:20→13:35)
[2021-04-22] MEDS: METOPROLOL TARTRATE 50 MG TABLET (FP) PO SCH ×2 (11:44→22:06)
[2021-04-22] MEDS: PANTOPRAZOLE 20 MG TABLET PO SCH (11:44)
[2021-04-22] MEDS: levETIRAcetam 500 MG TABLET (FP) PO SCH (11:44)
[2021-04-22] MEDS ORDERED: METOPROLOL TARTRATE 50 MG TABLET (FP) PO ONE (12:59)
[2021-04-22 17:02] LABS: CALCIUM 8.7 mg/dL (8.5-10.1)
[2021-04-22 17:03] LABS: ALBUMIN 3.6 g/dl (3.4-5.0); BLOOD UREA NITROGEN 32.8 mg/dL (7-18); MAGNESIUM 2.2 mg/dL (1.8-2.4)
[2021-04-22 17:06] LABS: CREATININE 1.6 mg/dL (0.55-1.3)
[2021-04-22 17:07] LABS: TOT PROT 7.2 g/dl (6.4-8.2)
[2021-04-22 17:08] LABS: BILIRUBIN,TOTAL 1.4 mg/dL (0.2-1)
[2021-04-22 17:09] LABS: INR 3.1 (0.83-1.09); PROTHROMBIN TIME (PATIENT) 36.1 SEC (9.7-13.0)
[2021-04-22] MEDS ORDERED: ACETAMINOPHEN 325 MG TABLET (FP) PO PRN (17:37)
[2021-04-22] MEDS: WARFARIN NA 5 MG TABLET PO SCH (17:57)
[2021-04-22] MEDS: ATORVASTATIN CA 80 MG TABLET (FP) PO SCH (22:05)
[2021-04-23] MEDS: FUROSEMIDE 40 MG TABLET (FP) PO SCH ×2 (06:40→14:26)
[2021-04-23 08:59] LABS: INR 3.03 (0.83-1.09); PROTHROMBIN TIME (PATIENT) 35.2 SEC (9.7-13.0)
[2021-04-23] MEDS: levETIRAcetam 500 MG TABLET (FP) PO SCH (09:27)
[2021-04-23] MEDS: METOPROLOL TARTRATE 50 MG TABLET (FP) PO SCH (09:27)
[2021-04-23] MEDS: PANTOPRAZOLE 20 MG TABLET PO SCH (09:28)
[2021-04-23 15:31] VITALS: BP 120/77; PULSE 72; TEMP 97.8
[2021-04-23] MEDS ORDERED: WARFARIN NA 2 MG TABLET PO SCH (18:00)
== END 2021-04-23 19:15 | disposition home or self-care (01) | DRG 291 ==
LOC: JER 00:24 → JERBED 01:43 → J4W 04-21 00:05
PROVIDERS: ADMIT Hospitalist; ATTEND Family Medicine
DX: I13.0 Hypertensive heart and chronic kidney disease with heart failure and stage 1 through stage 4 chronic kidney disease, or unspecified chronic kidney disease (principal); I50.23 Acute on chronic systolic (congestive) heart failure; I48.20 Chronic atrial fibrillation, unspecified; N17.9 Acute kidney failure, unspecified; I38 Endocarditis, valve unspecified; R18.8 Other ascites; I47.2 Ventricular tachycardia; I25.10 Atherosclerotic heart disease of native coronary artery without angina pectoris; G47.30 Sleep apnea, unspecified; E78.5 Hyperlipidemia, unspecified; R80.9 Proteinuria, unspecified; N40.0 Benign prostatic hyperplasia without lower urinary tract symptoms; I45.10 Unspecified right bundle-branch block; E11.649 Type 2 diabetes mellitus with hypoglycemia without coma; E11.22 Type 2 diabetes mellitus with diabetic chronic kidney disease; N18.9 Chronic kidney disease, unspecified; R93.5 Abnormal findings on diagnostic imaging of other abdominal regions, including retroperitoneum; Z86.73 Personal history of transient ischemic attack (TIA), and cerebral infarction without residual deficits; Z87.11 Personal history of peptic ulcer disease
CPT/HCPCS: 36415; 71045-TC-FY; 74176-TC; 74240-TC-FY; 76775-TC; 80048; 80053; 81003; 82550; 82803; 82962; 83605; 83735; 83880; 84100; 84484; 85025; 85027; 85610; 87086; 93005; 93010; 93308; 94761; 99285-25; C9803-CS; U0003; U0005